=== PATIENT | female | born 1955 | race African-American/Black ===

== ENCOUNTER 2016-11-06 01:55 | Emergency (ER) | payer MEDICAID, OTHER ==
[~2016-11-06] VITALS: Ht 162.6 cm; Wt 54.0 kg
[~2016-11-06 01:55] MED LIST: CLON0.1T PO
[2016-11-06] MEDS ORDERED: MORPHINE SULFATE 4 MG/ML CPJ (NOT FOR IM USE) IV STA (02:52)
[2016-11-06] MEDS ORDERED: SODIUM CHLORIDE 0.9% 1,000 ML IV ONE (02:52)
[2016-11-06] MEDS ORDERED: ONDANSETRON HCL 4MG/2ML VIAL IV STA (02:52)
[2016-11-06 03:14] LABS: BASOPHILS % 0.4 % (0.0-2.0); EOSINOPHILS % 0.3 % (0.0-5.0); HEMOGLOBIN. 12.6 g/dL (12.0-16.0); LYMPHOCYTES % 21.1 % (20.0-50.0); MEAN CORPUSCULAR HEMOGLOBIN 28.4 pg (28.0-32.0); MEAN CORPUSCULAR VOLUME 83.5 fL (81.0-99.0); MEAN PLATELET VOLUME 7.9 fl (7.4-10.4); MONOCYTES % 11.7 % (2.0-8.0); NEUTROPHILS % 66.5 % (40.0-76.0); PLATELET 196 x1000/uL (130-400); RED BLOOD CELL COUNT 4.43 mill/uL (4.2-5.4); RED CELL DISTRIBUTION WIDTH 16.1 % (11.6-14.6)
[2016-11-06 03:26] LABS: CARBON DIOXIDE 26 mEq/L (21-32); CHLORIDE 102 mEq/L (98-107); TROPONIN I < 0.02 ng/mL (0.00-0.04)
[2016-11-06] MEDS ORDERED: POTASSIUM CHLORIDE 20MEQ TABLET SR PO ONE (03:45)
[2016-11-06] MEDS ORDERED: KETOROLAC 30MG/ML VIAL IV ONE (05:30)
[2016-11-06 08:15] VITALS: BP 145/65
== END 2016-11-06 08:26 | disposition home or self-care (01) ==
LOC: ER 01:56
DX: R10.12 Left upper quadrant pain (principal); I10 Essential (primary) hypertension; I25.2 Old myocardial infarction; Z88.0 Allergy status to penicillin; Z91.041 Radiographic dye allergy status
CPT/HCPCS: 36415; 71010; 74176; 78580; 80053; 83690; 84484; 85025; 85379; 93005; 96361; 96374; 96375; 99285; A9540; J1885; J2270; J2405; J7030; Z7610

== ENCOUNTER 2017-10-11 11:57 | Emergency (ER) | payer OTHER ==
[~2017-10-11] VITALS: Ht 162.6 cm; Wt 65.0 kg
[2017-10-11 12:08] VITALS: BP 110/70
== END 2017-10-11 15:02 | disposition left against medical advice (07) ==
LOC: ER 11:57
DX: R07.81 Pleurodynia (principal); M79.602 Pain in left arm; R00.0 Tachycardia, unspecified; I51.7 Cardiomegaly
CPT/HCPCS: 93005; 99283

== ENCOUNTER 2018-04-21 05:05 | Emergency (ER) | payer OTHER ==
[~2018-04-21] VITALS: Ht 162.6 cm; Wt 57.0 kg
[~2018-04-21 05:05] MED LIST changes: +AMLO10TA80 MT; +ASPI-1159 MT; -CLON0.1T PO; +DOCU-100 MT; +HYDR-4001 MT; +LEVE500T19 MT; +OMEP20TA2 MT; +XAR15 MT
[2018-04-21] MEDS ORDERED: LORAZEPAM 2MG/ML CPJ ONE (05:37)
[2018-04-21] MEDS ORDERED: LORAZEPAM 2MG/ML CPJ IV ONE (06:00)
[2018-04-21] MEDS ORDERED: LEVETIRACETAM 1000MG/100ML 100 ML IV ONE (06:30)
[2018-04-21 06:55] LABS: CHLORIDE 103 mEq/L (98-107)
[2018-04-21 07:04] LABS: ETHANOL BLOOD < 10 mg/dL; HEMATOCRIT. 37.3 % (36.0-48.0); HEMOGLOBIN. 11.6 g/dL (12.0-16.0); MEAN CORPUSCULAR HEMOGLOBIN 25.1 pg (28.0-32.0); MEAN CORPUSCULAR VOLUME 80.9 fL (81.0-99.0); RED BLOOD CELL COUNT 4.62 mill/uL (4.2-5.4); RED CELL DISTRIBUTION WIDTH 17.8 % (11.6-14.6)
[2018-04-21 07:46] LABS: PLATELET ESTIMATE NORMAL
[2018-04-21 07:48] LABS: PLATELET 237 x1000/uL (130-400)
[2018-04-21 08:46] VITALS: BP 150/105
== END 2018-04-21 10:51 | disposition home or self-care (01) ==
LOC: ER 05:05
DX: G40.909 Epilepsy, unspecified, not intractable, without status epilepticus (principal); E87.6 Hypokalemia; D64.9 Anemia, unspecified; R07.81 Pleurodynia; K44.9 Diaphragmatic hernia without obstruction or gangrene; I10 Essential (primary) hypertension
CPT/HCPCS: 36415; 71045; 80053; 85025; 96365; 96375; 99285; G0482; J2060

== ENCOUNTER 2018-11-04 01:26 | Inpatient (IN) | payer OTHER ==
[~2018-11-04] VITALS: Ht 165.1 cm; Wt 73.5 kg
[~2018-11-04 01:26] MED LIST changes: -AMLO10TA80 MT; +AMLO10TA80 PO; -ASPI-1159 MT; +ASPI-1393 PO; -DOCU-100 MT; +DOCU-100 PO; +FERR325T6 MT; +FOLI-43 PO; +LASIX; -LEVE500T19 MT; +LEVE500T19 PO; -OMEP20TA2 MT; +OMEP20TA2 PO; +THIA100T72 PO; -XAR15 MT; +XAR15 PO
[2018-11-04] MEDS ORDERED: SODIUM CHLORIDE 0.9% 1,000 ML IV ONE ×2 (02:40→05:09)
[2018-11-04] MEDS ORDERED: METOCLOPRAMIDE HCL 10MG/2ML VIAL IV STA (02:40)
[2018-11-04] MEDS ORDERED: MORPHINE SULFATE 4 MG/ML CPJ (NOT FOR IM USE) IV STA (02:40)
[2018-11-04 03:05] LABS: BASOPHILS % 0.8 % (0.0-2.0); HEMATOCRIT. 36.6 % (36.0-48.0); LYMPHOCYTES % 12.1 % (20.0-50.0); MEAN CORPUSCULAR HEMOGLOBIN 25.8 pg (28.0-32.0); MEAN CORPUSCULAR VOLUME 78.6 fL (81.0-99.0); MEAN PLATELET VOLUME 8.3 fl (7.4-10.4); MONOCYTES % 7.1 % (2.0-8.0); PLATELET 185 x1000/uL (130-400); RED BLOOD CELL COUNT 4.66 mill/uL (4.2-5.4); RED CELL DISTRIBUTION WIDTH 19.3 % (11.6-14.6)
[2018-11-04 03:09] LABS: CHLORIDE 101 mEq/L (98-107)
[2018-11-04] MEDS ORDERED: LORAZEPAM 2MG/ML CPJ IV ONE (04:00)
[2018-11-04] MEDS ORDERED: LEVETIRACETAM 500MG PREMIX 100 ML IV ONE (04:00)
[2018-11-04 04:26] LABS: CLARITY URINE CLOUDY (CLEAR); COLOR URINE YELLOW (YELLOW); KETONES URINE NEGATIVE (NEGATIVE); LEUKOCYTE ESTERASE URINE 1+ (NEGATIVE); NITRITE URINE NEGATIVE (NEGATIVE); OCCULT BLOOD URINE 2+ (NEGATIVE); PROTEIN URINE 2+ (NEGATIVE); SPECIFIC GRAVITY URINE 1.023 (1.005-1.030)
[2018-11-04] MEDS ORDERED: DIATR MEGLU/DIATRIZOATE SOLN 30ML ONE (04:36)
[2018-11-04] MEDS ORDERED: CEFTRIAXONE 1 G PREMIX 50 ML IV ONE (05:15)
[2018-11-04] MEDS ORDERED: ONDANSETRON HCL 4MG/2ML INJ IV ONE (06:30)
[2018-11-04] MEDS ORDERED: MORPHINE SULFATE 4 MG/ML CPJ (NOT FOR IM USE) IV ONE (06:45)
[2018-11-04] MEDS ORDERED: MORPHINE SULFATE 2 MG/ML CPJ (NOT FOR IM USE) IV PRN (09:15)
[2018-11-04] MEDS ORDERED: DOCUSATE SODIUM 250MG CAPSULE PO PRN (09:15)
[2018-11-04 10:00] VITALS: BP 188/134
[2018-11-04] MEDS: OMEPRAZOLE 20MG CAPSULE EXTENDED RELEASE PO SCH (10:29)
[2018-11-04] MEDS: SODIUM CHLORIDE 0.9% 1,000 ML IV SCH (10:29)
[2018-11-04] MEDS: AMLODIPINE 5MG TABLET PO SCH ×2 (10:29→21:32)
[2018-11-04] MEDS: CLONIDINE 0.1MG TABLET PO PRN (10:30)
[2018-11-04] MEDS: ONDANSETRON HCL 4MG/2ML INJ IV PRN (10:33)
[2018-11-04] MEDS ORDERED: LOSARTAN POTASSIUM 50 MG TABLET PO SCH (11:00)
[2018-11-04] MEDS: LEVOFLOXACIN 500MG PREMIX 100 ML IV SCH (11:46)
[2018-11-04] MEDS ORDERED: HYDRALAZINE 20MG/ML VIAL IV PRN (14:30)
[2018-11-04] MEDS ORDERED: HYDRALAZINE 20MG/ML VIAL IV NR (14:30)
[2018-11-04] MEDS: FOLIC ACID 1MG TABLET PO SCH (15:36)
[2018-11-04] MEDS: THIAMINE HCL 100MG TABLET PO SCH (15:36)
[2018-11-04] MEDS: MULTIVITAMINS,THER W-MINERALS TABLET PO SCH (15:36)
[2018-11-04] MEDS: MORPHINE SULFATE 4 MG/ML CPJ (NOT FOR IM USE) IV PRN ×2 (15:44→21:33)
[2018-11-04] MEDS: ACETAMINOPHEN 325MG TABLET PO PRN (15:53)
[2018-11-04 16:00] VITALS: BP 138/94
[2018-11-04] MEDS: RIVAROXABAN 20 MG TABLET PO SCH (17:26)
[2018-11-04 20:00] VITALS: BP 97/62
[2018-11-04] MEDS ORDERED: LEVETIRACETAM 500MG TABLET PO SCH (21:00)
[2018-11-04] MEDS ORDERED: AMLODIPINE 5MG TABLET PO SCH (21:00)
[2018-11-04 21:30] VITALS: BP 120/68
[2018-11-04] MEDS: LOSARTAN POTASSIUM 50 MG TABLET PO SCH (21:32)
[2018-11-04] MEDS: LEVETIRACETAM 500MG TABLET PO SCH (21:32)
[2018-11-05] VITALS (8 sets, daily range): BP systolic 77–108; BP diastolic 46–62
[2018-11-05] MEDS: SODIUM CHLORIDE 0.9% 1,000 ML IV SCH ×3 (03:34→22:38)
[2018-11-05] MEDS: MORPHINE SULFATE 4 MG/ML CPJ (NOT FOR IM USE) IV PRN ×3 (03:34→22:16)
[2018-11-05] MEDS: OMEPRAZOLE 20MG CAPSULE EXTENDED RELEASE PO SCH (06:59)
[2018-11-05] MEDS: AMLODIPINE 5MG TABLET PO SCH ×2 (08:39→21:00)
[2018-11-05] MEDS: LOSARTAN POTASSIUM 50 MG TABLET PO SCH (08:39)
[2018-11-05] MEDS: FOLIC ACID 1MG TABLET PO SCH (08:51)
[2018-11-05] MEDS: THIAMINE HCL 100MG TABLET PO SCH (08:51)
[2018-11-05] MEDS: LEVETIRACETAM 500MG TABLET PO SCH ×2 (08:51→21:18)
[2018-11-05] MEDS: MULTIVITAMINS,THER W-MINERALS TABLET PO SCH (08:51)
[2018-11-05 09:38] LABS: BASOPHILS % 1.1 % (0.0-2.0); EOSINOPHILS % 2.4 % (0.0-5.0); HEMATOCRIT. 33.3 % (36.0-48.0); HEMOGLOBIN. 10.6 g/dL (12.0-16.0); LYMPHOCYTES % 31.9 % (20.0-50.0); MEAN CORPUSCULAR HEMOGLOBIN 25.7 pg (28.0-32.0); MEAN CORPUSCULAR VOLUME 81.2 fL (81.0-99.0); MEAN PLATELET VOLUME 8.5 fl (7.4-10.4); NEUTROPHILS % 50.6 % (40.0-76.0); PLATELET 152 x1000/uL (130-400); RED BLOOD CELL COUNT 4.11 mill/uL (4.2-5.4); RED CELL DISTRIBUTION WIDTH 19.1 % (11.6-14.6)
[2018-11-05] MEDS: LEVOFLOXACIN 500MG PREMIX 100 ML IV SCH (09:44)
[2018-11-05] MEDS ORDERED: BISACODYL 10MG SUPP PR PRN (11:00)
[2018-11-05] MEDS: MIDODRINE HCL 5MG TABLET PO SCH ×3 (11:05→18:06)
[2018-11-05 11:52] LABS: CHLORIDE 106 mEq/L (98-107)
[2018-11-05] MEDS ORDERED: SODIUM CHLORIDE 0.9% 1000ML BAG (SEPSIS BOLUS) IV ONE (15:00)
[2018-11-05] MEDS ORDERED: MIDODRINE HCL 5MG TABLET PO NR (15:00)
[2018-11-05] MEDS ORDERED: SODIUM CHLORIDE 0.9% 1,000 ML IV SCH (15:15)
[2018-11-05] MEDS: DOCUSATE SODIUM 100MG CAPSULE PO SCH (18:06)
[2018-11-05] MEDS: RIVAROXABAN 20 MG TABLET PO SCH (18:06)
[2018-11-06] VITALS: BP 101/63
[2018-11-06] MEDS: ACETAMINOPHEN 325MG TABLET PO PRN (02:07)
[2018-11-06] MEDS: MORPHINE SULFATE 4 MG/ML CPJ (NOT FOR IM USE) IV PRN ×5 (03:02→23:49)
[2018-11-06 04:00] VITALS: BP 97/59
[2018-11-06] MEDS: OMEPRAZOLE 20MG CAPSULE EXTENDED RELEASE PO SCH (06:57)
[2018-11-06 08:00] VITALS: BP 97/67
[2018-11-06] MEDS: DOCUSATE SODIUM 100MG CAPSULE PO SCH ×2 (09:10→16:29)
[2018-11-06] MEDS: FOLIC ACID 1MG TABLET PO SCH (09:10)
[2018-11-06] MEDS: MULTIVITAMINS,THER W-MINERALS TABLET PO SCH (09:10)
[2018-11-06] MEDS: THIAMINE HCL 100MG TABLET PO SCH (09:10)
[2018-11-06] MEDS: AMLODIPINE 5MG TABLET PO SCH (09:10)
[2018-11-06] MEDS: LEVETIRACETAM 500MG TABLET PO SCH ×2 (09:10→23:22)
[2018-11-06] MEDS: MIDODRINE HCL 5MG TABLET PO SCH ×3 (09:11→16:30)
[2018-11-06] MEDS: LEVOFLOXACIN 500MG PREMIX 100 ML IV SCH (10:46)
[2018-11-06 12:00] VITALS: BP 104/67
[2018-11-06] MEDS: SODIUM CHLORIDE 0.9% 1,000 ML IV SCH (14:09)
[2018-11-06 16:00] VITALS: BP 112/64
[2018-11-06] MEDS: RIVAROXABAN 20 MG TABLET PO SCH (16:29)
[2018-11-06 16:44] LABS: CHLORIDE 109 mEq/L (98-107)
[2018-11-06 16:58] LABS: BASOPHILS % 0.5 % (0.0-2.0); EOSINOPHILS % 3.6 % (0.0-5.0); HEMATOCRIT. 31.4 % (36.0-48.0); HEMOGLOBIN. 10.2 g/dL (12.0-16.0); MEAN CORPUSCULAR HEMOGLOBIN 25.9 pg (28.0-32.0); MEAN CORPUSCULAR VOLUME 79.9 fL (81.0-99.0); MEAN PLATELET VOLUME 8.8 fl (7.4-10.4); NEUTROPHILS % 55.9 % (40.0-76.0); PLATELET 171 x1000/uL (130-400); RED BLOOD CELL COUNT 3.93 mill/uL (4.2-5.4); RED CELL DISTRIBUTION WIDTH 18.8 % (11.6-14.6)
[2018-11-06 20:00] VITALS: BP 115/77
[2018-11-07] VITALS: BP 155/93
[2018-11-07] MEDS: MORPHINE SULFATE 4 MG/ML CPJ (NOT FOR IM USE) IV PRN ×5 (03:47→22:51)
[2018-11-07 04:00] VITALS: BP 123/83
[2018-11-07 07:31] LABS: CHLORIDE 110 mEq/L (98-107)
[2018-11-07 08:00] VITALS: BP 110/53
[2018-11-07 08:45] LABS: BASOPHILS % 0.9 % (0.0-2.0); HEMOGLOBIN. 11.2 g/dL (12.0-16.0); LYMPHOCYTES % 34.4 % (20.0-50.0); MEAN CORPUSCULAR VOLUME 81.5 fL (81.0-99.0); MONOCYTES % 9.5 % (2.0-8.0); NEUTROPHILS % 52.2 % (40.0-76.0); RED CELL DISTRIBUTION WIDTH 19.2 % (11.6-14.6)
[2018-11-07] MEDS: FOLIC ACID 1MG TABLET PO SCH (08:50)
[2018-11-07] MEDS: MIDODRINE HCL 5MG TABLET PO SCH (08:51)
[2018-11-07] MEDS: DOCUSATE SODIUM 100MG CAPSULE PO SCH ×2 (08:51→17:15)
[2018-11-07] MEDS: MULTIVITAMINS,THER W-MINERALS TABLET PO SCH (08:51)
[2018-11-07] MEDS: FAMOTIDINE 20MG TABLET PO SCH ×2 (08:51→20:57)
[2018-11-07] MEDS: THIAMINE HCL 100MG TABLET PO SCH (08:52)
[2018-11-07] MEDS: LEVETIRACETAM 500MG TABLET PO SCH ×2 (08:52→20:57)
[2018-11-07 10:15] LABS: *BARBITURATES SCREEN URINE NEGATIVE (NEGATIVE); *BENZODIAZEPINES SCREEN URINE NEGATIVE (NEGATIVE); *COCAINE SCREEN URINE NEGATIVE (NEGATIVE); METHADONE URINE SCREEN NEGATIVE (NEGATIVE); OPIATES URINE SCREEN PRESUMTIVE POSITIVE (NEGATIVE)
[2018-11-07 10:16] LABS: *AMPHETAMINES SCREEN URINE NEGATIVE (NEGATIVE); CANNABINOID URINE SCREEN NEGATIVE (NEGATIVE); PHENCYCLIDINE URINE SCREEN NEGATIVE (NEGATIVE)
[2018-11-07] MEDS: LEVOFLOXACIN 500MG TABLET PO SCH (10:35)
[2018-11-07] MEDS: SODIUM CHLORIDE 0.9% 1,000 ML IV SCH (10:35)
[2018-11-07 11:54] LABS: PLATELET 72 x1000/uL (130-400)
[2018-11-07 12:00] VITALS: BP 126/81
[2018-11-07 16:00] VITALS: BP 155/99
[2018-11-07] MEDS: RIVAROXABAN 20 MG TABLET PO SCH (17:15)
[2018-11-07] MEDS: ONDANSETRON HCL 4MG/2ML INJ IV PRN ×2 (17:15→23:16)
[2018-11-07] MEDS ORDERED: LORAZEPAM 2MG/ML CPJ IV PRN (18:00)
[2018-11-07] MEDS ORDERED: ATOR40TA70 MT (18:25)
[2018-11-07] MEDS ORDERED: GABA-531 MT (18:25)
[2018-11-07] MEDS ORDERED: METO25TA6 MT (18:25)
[2018-11-07] MEDS ORDERED: TRAM50TA3 MT (18:25)
[2018-11-07] MEDS ORDERED: ISOS30TA6 MT (18:25)
[2018-11-07] MEDS ORDERED: DICL100G31 TP (18:25)
[2018-11-07 20:00] VITALS: BP 174/122
[2018-11-08] VITALS (8 sets, daily range): BP systolic 122–170; BP diastolic 75–110
[2018-11-08] MEDS: MORPHINE SULFATE 4 MG/ML CPJ (NOT FOR IM USE) IV PRN (03:34)
[2018-11-08] MEDS: SODIUM CHLORIDE 0.9% 1,000 ML IV SCH (03:34)
[2018-11-08] MEDS ORDERED: ONDANSETRON HCL 4MG TABLET PO PRN (08:30)
[2018-11-08] MEDS: FAMOTIDINE 20MG TABLET PO SCH ×2 (08:55→20:47)
[2018-11-08] MEDS: LEVETIRACETAM 500MG TABLET PO SCH ×2 (08:55→20:47)
[2018-11-08] MEDS: MULTIVITAMINS,THER W-MINERALS TABLET PO SCH (08:55)
[2018-11-08] MEDS: THIAMINE HCL 100MG TABLET PO SCH (08:55)
[2018-11-08] MEDS: DOCUSATE SODIUM 100MG CAPSULE PO SCH ×2 (08:55→17:12)
[2018-11-08] MEDS: FOLIC ACID 1MG TABLET PO SCH (08:55)
[2018-11-08] MEDS: HYDROMORPHONE HCL/PF 2MG/ML CPJ IM PRN ×2 (08:56→13:04)
[2018-11-08] MEDS ORDERED: LIDOCAINE HCL 1% 20ML VIAL (Pyxis) INJ ONE (10:04)
[2018-11-08] MEDS ORDERED: SODIUM BICARBONATE 4% (2.4MEQ) 5ML VIAL IV ONE (10:04)
[2018-11-08] MEDS: LEVOFLOXACIN 500MG TABLET PO SCH (11:12)
[2018-11-08] MEDS: CLONIDINE 0.1MG TABLET PO PRN (13:04)
[2018-11-08] MEDS ORDERED: BISACODYL 10MG SUPP PR NR (16:00)
[2018-11-08] MEDS ORDERED: BISACODYL 10MG SUPP PR PRN (16:00)
[2018-11-08] MEDS: RIVAROXABAN 20 MG TABLET PO SCH (17:12)
[2018-11-08] MEDS: HYDROMORPHONE HCL/PF 2MG/ML CPJ IV PRN ×2 (17:22→22:29)
[2018-11-09] VITALS: BP_SYST 115; BP_SYST 126; BP_DIAS 65; BP_DIAS 92
[2018-11-09] MEDS: HYDROMORPHONE HCL/PF 2MG/ML CPJ IV PRN ×4 (04:00→18:44)
[2018-11-09] MEDS: SODIUM CHLORIDE 0.9% 1,000 ML IV SCH ×3 (05:15→23:35)
[2018-11-09 08:00] VITALS: BP 122/70
[2018-11-09] MEDS: LEVETIRACETAM 500MG TABLET PO SCH ×2 (08:55→21:57)
[2018-11-09] MEDS: FAMOTIDINE 20MG TABLET PO SCH (08:56)
[2018-11-09] MEDS: FOLIC ACID 1MG TABLET PO SCH (08:56)
[2018-11-09] MEDS: THIAMINE HCL 100MG TABLET PO SCH (08:56)
[2018-11-09] MEDS: MULTIVITAMINS,THER W-MINERALS TABLET PO SCH (08:56)
[2018-11-09] MEDS: DOCUSATE SODIUM 100MG CAPSULE PO SCH (08:56)
[2018-11-09] MEDS: LEVOFLOXACIN 500MG TABLET PO SCH (11:22)
[2018-11-09] MEDS: LACTULOSE 20G/30ML UDC PO NR ×2 (11:22→11:24)
[2018-11-09 12:00] VITALS: BP 112/76
[2018-11-09] MEDS: OMEPRAZOLE 20MG CAPSULE EXTENDED RELEASE PO SCH ×2 (13:04→21:57)
[2018-11-09 16:00] VITALS: BP 120/81
[2018-11-09] MEDS: DOCUSATE SODIUM 250MG CAPSULE PO SCH (17:00)
[2018-11-09 20:00] VITALS: BP 123/81
[2018-11-10] VITALS: BP 104/70
[2018-11-10 00:16] LABS: BASOPHILS % 0.3 % (0.0-2.0); EOSINOPHILS % 3.7 % (0.0-5.0); HEMATOCRIT. 28.9 % (36.0-48.0); HEMOGLOBIN. 9.5 g/dL (12.0-16.0); MEAN CORPUSCULAR VOLUME 79.4 fL (81.0-99.0); MEAN PLATELET VOLUME 8.7 fl (7.4-10.4); MONOCYTES % 13.5 % (2.0-8.0); NEUTROPHILS % 60.5 % (40.0-76.0); PLATELET 146 x1000/uL (130-400); RED BLOOD CELL COUNT 3.64 mill/uL (4.2-5.4); RED CELL DISTRIBUTION WIDTH 19.1 % (11.6-14.6)
[2018-11-10] MEDS: HYDROMORPHONE HCL/PF 2MG/ML CPJ IV PRN ×4 (00:22→13:46)
[2018-11-10] MEDS: RIVAROXABAN 20 MG TABLET PO SCH (00:33)
[2018-11-10 04:00] VITALS: BP 110/66
[2018-11-10] MEDS: OMEPRAZOLE 20MG CAPSULE EXTENDED RELEASE PO SCH (06:24)
[2018-11-10 08:00] VITALS: BP 136/83
[2018-11-10] MEDS: FOLIC ACID 1MG TABLET PO SCH (09:17)
[2018-11-10] MEDS: MULTIVITAMINS,THER W-MINERALS TABLET PO SCH (09:17)
[2018-11-10] MEDS: SODIUM CHLORIDE 0.9% 1,000 ML IV SCH (09:17)
[2018-11-10] MEDS: DOCUSATE SODIUM 250MG CAPSULE PO SCH (09:17)
[2018-11-10] MEDS: LEVETIRACETAM 500MG TABLET PO SCH (09:17)
[2018-11-10] MEDS: THIAMINE HCL 100MG TABLET PO SCH (09:17)
[2018-11-10] MEDS ORDERED: BISACODYL 10MG SUPP PR SCH (10:00)
[2018-11-10] MEDS: LEVOFLOXACIN 500MG TABLET PO SCH (10:34)
[2018-11-10 12:00] VITALS: BP 112/64
[2018-11-10 15:26] VITALS: BP 123/81
[2018-11-10 15:30] VITALS: BP 123/81
[2018-11-10] MEDS ORDERED: NA PHOS,M-B/NA PHOS,DI-BA ENEMA 118ML PR SCH (20:00)
== END 2018-11-10 17:10 | disposition home or self-care (01) | DRG 282 ==
LOC: ER 01:26 → 5WST 05:58 → EDBEDREQ 05:59 → EDBEDREQTM 05:59 → ENRESERV 07:05 → CANRESERV 07:05 → ENRESERV 07:20
PROVIDERS: ADMIT Internal Medicine; ATTEND Internal Medicine
PROC: 02HV33Z Insertion of Infusion Device into Superior Vena Cava, Percutaneous Approach (ICD-10-PCS; principal; 2018-11-08)
PROC: B548ZZA Ultrasonography of Superior Vena Cava, Guidance (ICD-10-PCS; 2018-11-08)
PROC: B5181ZA Fluoroscopy of Superior Vena Cava using Low Osmolar Contrast, Guidance (ICD-10-PCS; 2018-11-08)
DX: K85.90 Acute pancreatitis without necrosis or infection, unspecified (principal); G20 Parkinson's disease; E87.2 Acidosis; D69.6 Thrombocytopenia, unspecified; I48.91 Unspecified atrial fibrillation; R65.10 Systemic inflammatory response syndrome (SIRS) of non-infectious origin without acute organ dysfunction; G40.909 Epilepsy, unspecified, not intractable, without status epilepticus; E78.5 Hyperlipidemia, unspecified; N39.0 Urinary tract infection, site not specified; E87.6 Hypokalemia; I45.6 Pre-excitation syndrome; K44.9 Diaphragmatic hernia without obstruction or gangrene; K59.00 Constipation, unspecified; K21.9 Gastro-esophageal reflux disease without esophagitis; I10 Essential (primary) hypertension; Z86.73 Personal history of transient ischemic attack (TIA), and cerebral infarction without residual deficits; I25.10 Atherosclerotic heart disease of native coronary artery without angina pectoris; Z95.810 Presence of automatic (implantable) cardiac defibrillator; I25.2 Old myocardial infarction; Z79.01 Long term (current) use of anticoagulants; Z86.711 Personal history of pulmonary embolism; Z90.49 Acquired absence of other specified parts of digestive tract; Z88.0 Allergy status to penicillin; Z88.9 Allergy status to unspecified drugs, medicaments and biological substances
CPT/HCPCS: 36415; 36569; 36573; 71045; 74018; 74176; 80048; 80305; 82962; 83036; 83605; 84484; 93970; 97116; 97162; 97530; 99285; C1725; C1893; J0360; J0696; J1170; J1953; J1956; J2060; J2270; J2405; J2765; J3490; J7030; J7050; Q9963

== ENCOUNTER 2018-11-30 07:35 | Emergency (ER) | payer OTHER ==
[~2018-11-30] VITALS: Ht 167.6 cm; Wt 65.0 kg
[~2018-11-30 07:35] MED LIST changes: +ATOR40TA70 MT; +DICL100G31 TP; +GABA-531 MT; +ISOS30TA6 MT; -LASIX; +METO25TA6 MT; +TRAM50TA3 MT
[2018-11-30] MEDS ORDERED: SODIUM CHLORIDE 0.9% 1,000 ML IV ONE (08:52)
[2018-11-30] MEDS ORDERED: LORAZEPAM 2MG/ML CPJ IV ONE (09:00)
[2018-11-30 09:14] LABS: CLARITY URINE CLEAR (CLEAR); COLOR URINE YELLOW (YELLOW); KETONES URINE 1+ (NEGATIVE); LEUKOCYTE ESTERASE URINE NEGATIVE (NEGATIVE); NITRITE URINE NEGATIVE (NEGATIVE); OCCULT BLOOD URINE 2+ (NEGATIVE); PROTEIN URINE 1+ (NEGATIVE); SPECIFIC GRAVITY URINE 1.016 (1.005-1.030); UROBILINOGEN URINE 0.2 E.U./dL (0.2-1.0)
[2018-11-30 09:16] LABS: BASOPHILS % 0.4 % (0.0-2.0); EOSINOPHILS % 0.2 % (0.0-5.0); HEMATOCRIT. 39.1 % (36.0-48.0); HEMOGLOBIN. 12.7 g/dL (12.0-16.0); MEAN CORPUSCULAR HEMOGLOBIN 25.9 pg (28.0-32.0); MEAN CORPUSCULAR VOLUME 79.8 fL (81.0-99.0); MEAN PLATELET VOLUME 8.5 fl (7.4-10.4); MONOCYTES % 9.5 % (2.0-8.0); NEUTROPHILS % 73.9 % (40.0-76.0); PLATELET 184 x1000/uL (130-400); RED CELL DISTRIBUTION WIDTH 18.2 % (11.6-14.6)
[2018-11-30 09:22] LABS: CHLORIDE 107 mEq/L (98-107)
[2018-11-30 09:24] LABS: INR 1.1; PROTHROMBIN TIME 11.7 sec (9.6-11.0)
[2018-11-30 09:26] LABS: ETHANOL BLOOD < 10 mg/dL
[2018-11-30 09:45] LABS: *COCAINE SCREEN URINE NEGATIVE (NEGATIVE)
[2018-11-30 09:46] LABS: *AMPHETAMINES SCREEN URINE NEGATIVE (NEGATIVE); CANNABINOID URINE SCREEN NEGATIVE (NEGATIVE); METHADONE URINE SCREEN NEGATIVE (NEGATIVE); OPIATES URINE SCREEN NEGATIVE (NEGATIVE); PHENCYCLIDINE URINE SCREEN NEGATIVE (NEGATIVE)
[2018-11-30 09:47] LABS: *BARBITURATES SCREEN URINE NEGATIVE (NEGATIVE); *BENZODIAZEPINES SCREEN URINE NEGATIVE (NEGATIVE)
[2018-11-30] MEDS ORDERED: MORPHINE SULFATE 4 MG/ML CPJ (NOT FOR IM USE) IV ONE ×2 (10:15→12:30)
[2018-11-30] MEDS ORDERED: ONDANSETRON HCL 4MG/2ML INJ IV ONE ×2 (10:15→12:30)
[2018-11-30 15:49] VITALS: BP 176/117
== END 2018-11-30 16:04 | disposition short-term general hospital (02) ==
LOC: ER 07:35
DX: R10.13 Epigastric pain (principal); Z88.0 Allergy status to penicillin; Z90.49 Acquired absence of other specified parts of digestive tract; Z95.0 Presence of cardiac pacemaker; Z90.89 Acquired absence of other organs; Z79.899 Other long term (current) drug therapy
CPT/HCPCS: 36415; 74176; 80053; 80305; 80320; 81003; 83690; 84484; 85025; 85610; 96374; 96375; 96376; 99285; J2060; J2270; J2405; J7030; Z7610; G0480

== ENCOUNTER 2019-01-20 19:03 | Emergency (ER) | payer OTHER ==
[~2019-01-20] VITALS: Ht 167.6 cm; Wt 65.0 kg
[2019-01-20] MEDS ORDERED: ONDANSETRON HCL 4MG/2ML INJ IV STA (19:50)
[2019-01-20] MEDS ORDERED: MORPHINE SULFATE 4 MG/ML CPJ (NOT FOR IM USE) IV STA (19:50)
[2019-01-20] MEDS ORDERED: KETOROLAC 30MG/ML VIAL IV STA (19:50)
[2019-01-20 20:13] LABS: BASOPHILS % 0.5 % (0.0-2.0); HEMATOCRIT. 40.5 % (36.0-48.0); HEMOGLOBIN. 13.2 g/dL (12.0-16.0); LYMPHOCYTES % 14.2 % (20.0-50.0); MEAN CORPUSCULAR HEMOGLOBIN 25.9 pg (28.0-32.0); MEAN CORPUSCULAR VOLUME 79.6 fL (81.0-99.0); MEAN PLATELET VOLUME 8.2 fl (7.4-10.4); MONOCYTES % 11.3 % (2.0-8.0); PLATELET 231 x1000/uL (130-400); RED BLOOD CELL COUNT 5.08 mill/uL (4.2-5.4); RED CELL DISTRIBUTION WIDTH 16.8 % (11.6-14.6)
[2019-01-20 20:18] LABS: CHLORIDE 98 mEq/L (98-107)
[2019-01-20 20:20] LABS: INR 1.1; PARTIAL THROMBOPLASTIN TIME 23.3 sec (23.4-31.0); PROTHROMBIN TIME 11.2 sec (9.6-11.0)
[2019-01-20 20:22] LABS: ETHANOL BLOOD < 10 mg/dL
[2019-01-20] MEDS ORDERED: MORPHINE SULFATE 10 MG/ML CPJ IM ONE (21:15)
[2019-01-20] MEDS ORDERED: KETOROLAC 30MG/ML VIAL IM ONE (21:15)
[2019-01-20] MEDS ORDERED: CLONIDINE 0.2MG TABLET PO ONE (22:15)
[2019-01-20] MEDS ORDERED: ASPIRIN 81MG TABLET PO ONE (22:15)
[2019-01-21 00:50] VITALS: BP 100/73
== END 2019-01-21 01:10 | disposition short-term general hospital (02) ==
LOC: ER 19:03 → EDBEDREQ 22:21 → ER 01-21 01:10 → CANBEDREQ 01-21 02:39
DX: R07.89 Other chest pain (principal); I10 Essential (primary) hypertension; W18.39XA Other fall on same level, initial encounter; Y93.89 Activity, other specified; Y92.89 Other specified places as the place of occurrence of the external cause; Y99.8 Other external cause status; Z90.49 Acquired absence of other specified parts of digestive tract; Z95.0 Presence of cardiac pacemaker; Z98.890 Other specified postprocedural states; Z79.82 Long term (current) use of aspirin; Z79.899 Other long term (current) drug therapy; Z88.0 Allergy status to penicillin; Z91.041 Radiographic dye allergy status
CPT/HCPCS: 36415; 71045; 71250; 74176; 80053; 80320; 83690; 83880; 84484; 85025; 85610; 85730; 93005; 96372; 99285; J1885; J2270; Z7610; J2405; G0480

== ENCOUNTER 2019-04-30 10:27 | Inpatient (IN) | payer MEDICAID, OTHER ==
[~2019-04-30] VITALS: Ht 165.1 cm; Wt 61.2 kg
[2019-04-30] MEDS ORDERED: LORAZEPAM 2MG/ML CPJ ONE (11:31)
[2019-04-30] MEDS ORDERED: ONDANSETRON HCL 4MG/2ML INJ IV ONE (11:45)
[2019-04-30] MEDS ORDERED: METOPROLOL TARTRATE 25MG TABLET PO ONE (11:45)
[2019-04-30] MEDS ORDERED: LEVETIRACETAM 500MG PREMIX 100 ML IV ONE (11:45)
[2019-04-30] MEDS ORDERED: FAMOTIDINE 20MG/2ML VIAL IV ONE (12:30)
[2019-04-30] MEDS ORDERED: MORPHINE SULFATE 2 MG/ML CPJ (NOT FOR IM USE) IV ONE (12:30)
[2019-04-30 14:55] LABS: BASOPHILS % 0.3 % (0.0-2.0); EOSINOPHILS % 0.3 % (0.0-5.0); HEMATOCRIT. 38.1 % (36.0-48.0); HEMOGLOBIN. 12.3 g/dL (12.0-16.0); LYMPHOCYTES % 17.1 % (20.0-50.0); MEAN CORPUSCULAR HEMOGLOBIN 25.6 pg (28.0-32.0); MEAN CORPUSCULAR VOLUME 79.6 fL (81.0-99.0); MEAN PLATELET VOLUME 8.2 fl (7.4-10.4); MONOCYTES % 7.6 % (2.0-8.0); NEUTROPHILS % 74.7 % (40.0-76.0); PLATELET 312 x1000/uL (130-400); RED BLOOD CELL COUNT 4.79 mill/uL (4.2-5.4); RED CELL DISTRIBUTION WIDTH 18.2 % (11.6-14.6)
[2019-04-30 15:03] LABS: CHLORIDE 107 mEq/L (98-107)
[2019-04-30 15:30] LABS: CLARITY URINE CLEAR (CLEAR); COLOR URINE YELLOW (YELLOW); KETONES URINE NEGATIVE (NEGATIVE); LEUKOCYTE ESTERASE URINE NEGATIVE (NEGATIVE); NITRITE URINE NEGATIVE (NEGATIVE); OCCULT BLOOD URINE TRACE (NEGATIVE); PH URINE 7.5 (4.5-8.0); PROTEIN URINE 1+ (NEGATIVE); SPECIFIC GRAVITY URINE 1.013 (1.005-1.030); UROBILINOGEN URINE 0.2 E.U./dL (0.2-1.0)
[2019-04-30] MEDS ORDERED: MORPHINE SULFATE 4 MG/ML CPJ (NOT FOR IM USE) IV ONE (16:00)
[2019-04-30] MEDS ORDERED: METOCLOPRAMIDE HCL 10MG/2ML VIAL IV ONE (16:15)
[2019-04-30] MEDS ORDERED: CLONIDINE 0.1MG TABLET PO PRN (19:15)
[2019-04-30] MEDS ORDERED: ONDANSETRON HCL 4MG/2ML INJ IV PRN (19:15)
[2019-04-30] MEDS ORDERED: ACETAMINOPHEN 325MG TABLET PO PRN (19:15)
[2019-04-30 20:45] VITALS: BP 138/82
[2019-04-30] MEDS: LEVETIRACETAM 500MG TABLET PO SCH (21:16)
[2019-05-01] VITALS: BP 114/73
[2019-05-01 04:00] VITALS: BP 112/86
[2019-05-01] MEDS: MORPHINE SULFATE 2 MG/ML CPJ (NOT FOR IM USE) IV PRN ×3 (04:24→19:22)
[2019-05-01 07:10] LABS: BASOPHILS % 0.6 % (0.0-2.0); EOSINOPHILS % 0.3 % (0.0-5.0); HEMATOCRIT. 37.5 % (36.0-48.0); HEMOGLOBIN. 12.1 g/dL (12.0-16.0); LYMPHOCYTES % 20.1 % (20.0-50.0); MEAN CORPUSCULAR HEMOGLOBIN 25.4 pg (28.0-32.0); MEAN CORPUSCULAR VOLUME 79.1 fL (81.0-99.0); MEAN PLATELET VOLUME 8.7 fl (7.4-10.4); MONOCYTES % 12.7 % (2.0-8.0); NEUTROPHILS % 66.3 % (40.0-76.0); PLATELET 276 x1000/uL (130-400); RED BLOOD CELL COUNT 4.74 mill/uL (4.2-5.4); RED CELL DISTRIBUTION WIDTH 18.5 % (11.6-14.6)
[2019-05-01 08:00] VITALS: BP 109/70
[2019-05-01] MEDS: LEVETIRACETAM 500MG TABLET PO SCH (08:11)
[2019-05-01] MEDS ORDERED: POTASSIUM CHLORIDE 20MEQ TABLET SR PO NR (10:00)
[2019-05-01 12:00] VITALS: BP 100/74
[2019-05-01 16:00] VITALS: BP 97/73
[2019-05-01] MEDS ORDERED: DOCUSATE SODIUM 100MG CAPSULE PO PRN (17:45)
[2019-05-01] MEDS ORDERED: HYDROCODONE/ACETAMINOPHEN 5/325MG TABLET PO PRN (17:45)
[2019-05-01] MEDS ORDERED: TRAMADOL 50MG TABLET PO PRN (18:15)
[2019-05-01 20:00] VITALS: BP 123/77
[2019-05-01] MEDS: ATORVASTATIN CALCIUM 40MG TABLET PO SCH (21:10)
[2019-05-01] MEDS: LEVETIRACETAM 250MG TABLET PO SCH (21:10)
[2019-05-01] MEDS: GABAPENTIN 300MG CAPSULE PO SCH (21:10)
[2019-05-02] VITALS: BP 109/66
[2019-05-02] MEDS: MORPHINE SULFATE 2 MG/ML CPJ (NOT FOR IM USE) IV PRN ×2 (01:04→08:31)
[2019-05-02 04:00] VITALS: BP 96/64
[2019-05-02] MEDS: GABAPENTIN 300MG CAPSULE PO SCH ×3 (06:22→21:57)
[2019-05-02 07:30] LABS: BASOPHILS % 0.6 % (0.0-2.0); EOSINOPHILS % 1.5 % (0.0-5.0); HEMATOCRIT. 36.6 % (36.0-48.0); HEMOGLOBIN. 11.5 g/dL (12.0-16.0); LYMPHOCYTES % 31.9 % (20.0-50.0); MEAN CORPUSCULAR HEMOGLOBIN 24.9 pg (28.0-32.0); MEAN CORPUSCULAR VOLUME 79.5 fL (81.0-99.0); MEAN PLATELET VOLUME 8.4 fl (7.4-10.4); MONOCYTES % 10.6 % (2.0-8.0); NEUTROPHILS % 55.4 % (40.0-76.0); PLATELET 289 x1000/uL (130-400); RED CELL DISTRIBUTION WIDTH 19.3 % (11.6-14.6)
[2019-05-02 08:00] VITALS: BP 118/78
[2019-05-02] MEDS: FOLIC ACID 1MG TABLET PO SCH (08:30)
[2019-05-02] MEDS: METOPROLOL TARTRATE 25MG TABLET PO SCH ×2 (08:30→20:46)
[2019-05-02] MEDS: ASPIRIN 81MG TABLET PO SCH (08:30)
[2019-05-02] MEDS: AMLODIPINE 10MG TABLET PO SCH (08:30)
[2019-05-02] MEDS: LEVETIRACETAM 250MG TABLET PO SCH ×2 (08:30→20:48)
[2019-05-02 08:31] LABS: CHLORIDE 105 mEq/L (98-107)
[2019-05-02] MEDS: ISOSORBIDE MONONITRATE 30MG TABLET SR 24HR PO SCH (08:47)
[2019-05-02] MEDS ORDERED: AMLODIPINE 10MG TABLET PO SCH (09:00)
[2019-05-02] MEDS ORDERED: OMEPRAZOLE 20MG CAPSULE EXTENDED RELEASE PO SCH (09:00)
[2019-05-02 12:00] VITALS: BP 84/52
[2019-05-02] MEDS ORDERED: SODIUM CHLORIDE 0.9% 250 ML IV ONE ×2 (13:15→14:15)
[2019-05-02 16:00] VITALS: BP 96/60
[2019-05-02] MEDS ORDERED: RIVAROXABAN 15 MG TABLET PO SCH (17:00)
[2019-05-02] MEDS: OMEPRAZOLE 20MG CAPSULE EXTENDED RELEASE PO SCH (17:20)
[2019-05-02] MEDS: SUCRALFATE 1 G/10 ML UDC PO SCH ×2 (17:20→20:46)
[2019-05-02 20:00] VITALS: BP 102/69
[2019-05-02] MEDS: ATORVASTATIN CALCIUM 40MG TABLET PO SCH (20:48)
[2019-05-03] VITALS: BP 107/74
[2019-05-03] MEDS: MORPHINE SULFATE 2 MG/ML CPJ (NOT FOR IM USE) IV PRN ×4 (00:22→15:33)
[2019-05-03 04:00] VITALS: BP 112/78
[2019-05-03] MEDS: GABAPENTIN 300MG CAPSULE PO SCH ×2 (06:31→15:32)
[2019-05-03] MEDS: OMEPRAZOLE 20MG CAPSULE EXTENDED RELEASE PO SCH (06:32)
[2019-05-03 06:55] LABS: CHLORIDE 107 mEq/L (98-107)
[2019-05-03 07:15] LABS: BASOPHILS % 0.8 % (0.0-2.0); HEMOGLOBIN. 10.6 g/dL (12.0-16.0); LYMPHOCYTES % 28.2 % (20.0-50.0); MEAN CORPUSCULAR HEMOGLOBIN 25.5 pg (28.0-32.0); MEAN CORPUSCULAR VOLUME 79.3 fL (81.0-99.0); MEAN PLATELET VOLUME 8.4 fl (7.4-10.4); MONOCYTES % 11.1 % (2.0-8.0); NEUTROPHILS % 57.9 % (40.0-76.0); PLATELET 253 x1000/uL (130-400); RED BLOOD CELL COUNT 4.16 mill/uL (4.2-5.4); RED CELL DISTRIBUTION WIDTH 18.6 % (11.6-14.6)
[2019-05-03] MEDS: SUCRALFATE 1 G/10 ML UDC PO SCH ×2 (07:54→12:34)
[2019-05-03] MEDS: ISOSORBIDE MONONITRATE 30MG TABLET SR 24HR PO SCH (08:43)
[2019-05-03] MEDS: METOPROLOL TARTRATE 25MG TABLET PO SCH (08:44)
[2019-05-03] MEDS: LEVETIRACETAM 250MG TABLET PO SCH (09:32)
[2019-05-03] MEDS: AMLODIPINE 10MG TABLET PO SCH (09:33)
[2019-05-03] MEDS: ASPIRIN 81MG TABLET PO SCH (09:33)
[2019-05-03] MEDS: FOLIC ACID 1MG TABLET PO SCH (09:33)
[2019-05-03 12:00] VITALS: BP 103/67
[2019-05-03] MEDS ORDERED: OMEP20TA2 PO (15:20)
[2019-05-03 16:00] VITALS: BP 105/65
[2019-05-03 17:43] VITALS: BP 105/65
[2019-05-09] MEDS ORDERED: FAMO20TA8 MT (15:00)
[2019-05-09] MEDS ORDERED: P20 MT (15:00)
[2019-05-09] MEDS ORDERED: DIPH25CA83 MT (15:00)
== END 2019-05-03 18:08 | disposition home or self-care (01) | DRG 241 ==
LOC: ER 10:34 → 6EST 18:18 → ENRESERV 19:17 → 6EST 05-01 10:40
PROVIDERS: ADMIT Internal Medicine; ATTEND Internal Medicine
DX: K29.70 Gastritis, unspecified, without bleeding (principal); I48.91 Unspecified atrial fibrillation; M32.9 Systemic lupus erythematosus, unspecified; E78.5 Hyperlipidemia, unspecified; G40.909 Epilepsy, unspecified, not intractable, without status epilepticus; I10 Essential (primary) hypertension; I25.10 Atherosclerotic heart disease of native coronary artery without angina pectoris; K27.9 Peptic ulcer, site unspecified, unspecified as acute or chronic, without hemorrhage or perforation; K21.9 Gastro-esophageal reflux disease without esophagitis; K44.9 Diaphragmatic hernia without obstruction or gangrene; Z90.49 Acquired absence of other specified parts of digestive tract; Z95.0 Presence of cardiac pacemaker; Z79.01 Long term (current) use of anticoagulants; Z88.0 Allergy status to penicillin; Z91.041 Radiographic dye allergy status; Z79.899 Other long term (current) drug therapy
CPT/HCPCS: 36415; 74176; 80048; 81003; 84484; C1893; J1953; J2060; J2270; J2405; J2765; J3490; A4315

== ENCOUNTER 2020-04-28 16:53 | Emergency (ER) | payer MEDICAID ==
[~2020-04-28] VITALS: Ht 162.6 cm; Wt 63.0 kg
[~2020-04-28 16:53] MED LIST changes: -ASPI-1393 PO; +ASPI-1497 PO; +DIPH25CA83 MT; +FAMO20TA8 MT; -FERR325T6 MT; -GABA-531 MT; -ISOS30TA6 MT; -METO25TA6 MT; +P20 MT
[2020-04-28] MEDS ORDERED: SODIUM CHLORIDE 0.9% 1,000 ML IV ONE (18:45)
[2020-04-28] MEDS ORDERED: ONDANSETRON HCL 4MG/2ML INJ IV ONE (18:45)
[2020-04-28] MEDS ORDERED: MORPHINE SULFATE 4 MG/ML CPJ (NOT FOR IM USE) IV ONE ×2 (18:45→22:30)
[2020-04-28] MEDS ORDERED: LEVETIRACETAM 500MG PREMIX 100 ML IV ONE (18:45)
[2020-04-28 19:25] LABS: CHLORIDE 105 mEq/L (98-107)
[2020-04-28 22:52] LABS: HEMATOCRIT. 42.4 % (36.0-48.0); HEMOGLOBIN. 13.3 g/dL (12.0-16.0); MEAN CORPUSCULAR HEMOGLOBIN 24.5 pg (28.0-32.0); MEAN CORPUSCULAR VOLUME 77.9 fL (81.0-99.0); MEAN PLATELET VOLUME 8.2 fl (7.4-10.4); PLATELET 172 x1000/uL (130-400); RED BLOOD CELL COUNT 5.44 mill/uL (4.2-5.4); RED CELL DISTRIBUTION WIDTH 17.9 % (11.6-14.6)
[2020-04-28] MEDS ORDERED: MORPHINE SULFATE 10 MG/ML CPJ IM ONE (23:15)
[2020-04-28 23:20] LABS: PLATELET ESTIMATE NORMAL
[2020-04-29] MEDS ORDERED: HYDROCODONE/ACETAMINOPHEN 10/325MG TABLET PO ONE (00:45)
[2020-04-29 01:20] VITALS: BP 168/96
== END 2020-04-29 01:32 | disposition home or self-care (01) ==
LOC: ER 16:53
DX: K44.9 Diaphragmatic hernia without obstruction or gangrene (principal); I10 Essential (primary) hypertension; E78.00 Pure hypercholesterolemia, unspecified; Z90.49 Acquired absence of other specified parts of digestive tract; Z95.0 Presence of cardiac pacemaker; Z79.82 Long term (current) use of aspirin; Z79.899 Other long term (current) drug therapy; Z88.0 Allergy status to penicillin; Z91.041 Radiographic dye allergy status
CPT/HCPCS: 36415; 70450; 74176; 80048; 80076; 83690; 84484; 85025; 93005; 96365; 96375; 96376; 99285; J1953; J2270; J2405; J7030

== ENCOUNTER 2021-01-25 12:14 | Inpatient (IN) | payer OTHER, MEDICAID ==
[~2021-01-25] VITALS: Ht 162.6 cm; Wt 65.3 kg
[2021-01-25] MEDS ORDERED: SODIUM CHLORIDE 0.9% 1,000 ML IV ONE ×2 (12:45→15:30)
[2021-01-25 14:25] LABS: CLARITY URINE CLEAR (CLEAR); COLOR URINE YELLOW (YELLOW); KETONES URINE NEGATIVE (NEGATIVE); LEUKOCYTE ESTERASE URINE NEGATIVE (NEGATIVE); NITRITE URINE NEGATIVE (NEGATIVE); OCCULT BLOOD URINE NEGATIVE (NEGATIVE); PROTEIN URINE 2+ (NEGATIVE); SPECIFIC GRAVITY URINE 1.012 (1.005-1.030); UROBILINOGEN URINE 0.2 E.U./dL (0.2-1.0)
[2021-01-25 14:44] LABS: HEMATOCRIT. 36.4 % (36.0-48.0); HEMOGLOBIN. 11.5 g/dL (12.0-16.0); MEAN CORPUSCULAR HEMOGLOBIN 22.6 pg (28.0-32.0); MEAN CORPUSCULAR VOLUME 71.6 fL (81.0-99.0); MEAN PLATELET VOLUME 9.3 fl (7.4-10.4); PLATELET 231 x1000/uL (130-400); RED BLOOD CELL COUNT 5.09 mill/uL (4.2-5.4); RED CELL DISTRIBUTION WIDTH 20.1 % (11.6-14.6)
[2021-01-25 14:49] LABS: CHLORIDE 100 mEq/L (98-107)
[2021-01-25 14:52] LABS: ETHANOL BLOOD < 10 mg/dL
[2021-01-25 14:53] LABS: INR 1.1
[2021-01-25 15:10] LABS: *AMPHETAMINES SCREEN URINE NEGATIVE (NEGATIVE); *BARBITURATES SCREEN URINE NEGATIVE (NEGATIVE); *BENZODIAZEPINES SCREEN URINE NEGATIVE (NEGATIVE); *COCAINE SCREEN URINE NEGATIVE (NEGATIVE); CANNABINOID URINE SCREEN NEGATIVE (NEGATIVE)
[2021-01-25 15:11] LABS: METHADONE URINE SCREEN NEGATIVE (NEGATIVE); OPIATES URINE SCREEN NEGATIVE (NEGATIVE); PHENCYCLIDINE URINE SCREEN NEGATIVE (NEGATIVE)
[2021-01-25] MEDS ORDERED: LEVOFLOXACIN 750MG PREMIX 150 ML IV ONE (15:30)
[2021-01-25] MEDS ORDERED: VANCOMYCIN 1 G PREMIX 200 ML IV ONE (15:30)
[2021-01-25] MEDS ORDERED: KCL 20MEQ/100ML PREMIX 100 ML IV ONE (15:45)
[2021-01-25] MEDS ORDERED: LEVETIRACETAM 500MG PREMIX 100 ML IV ONE (15:45)
[2021-01-25] MEDS ORDERED: POTASSIUM CHLORIDE 20MEQ/PACKET PO ONE (15:45)
[2021-01-25 16:36] LABS: PLATELET ESTIMATE NORMAL
[2021-01-25] MEDS ORDERED: MORPHINE SULFATE 4 MG/ML CPJ (NOT FOR IM USE) IV ONE (17:15)
[2021-01-25] MEDS ORDERED: DOCUSATE SODIUM 100MG CAPSULE PO PRN (19:45)
[2021-01-25] MEDS ORDERED: IPRATROPIUM/ALBUTEROL 0.5-3(2.5)MG/3ML NEB HHN PRN (19:45)
[2021-01-25] MEDS ORDERED: LORAZEPAM 2MG/ML CPJ IV PRN (19:45)
[2021-01-25] MEDS ORDERED: ONDANSETRON HCL 4MG/2ML INJ IV PRN (19:45)
[2021-01-25] MEDS ORDERED: NALOXONE HCL 0.4MG/ML VIAL IV PRN (19:45)
[2021-01-25] MEDS ORDERED: ACETAMINOPHEN 325MG TABLET PO PRN ×2 (19:45)
[2021-01-25] MEDS ORDERED: CLONIDINE 0.1MG TABLET PO PRN (19:45)
[2021-01-25] MEDS ORDERED: LORAZEPAM 0.5MG TABLET PO PRN (19:45)
[2021-01-25 20:41] LABS: CREATINE KINASE MB FRACTION 1.2 ng/mL (0.5-3.6)
[2021-01-25] MEDS: HYDROCODONE/ACETAMINOPHEN 5/325MG TABLET PO PRN (20:41)
[2021-01-25] MEDS ORDERED: HYDRALAZINE 20MG/ML VIAL IV PRN (22:45)
[2021-01-25] MEDS: MORPHINE SULFATE 4 MG/ML CPJ (NOT FOR IM USE) IV PRN (23:06)
[2021-01-25 23:45] VITALS: BP 166/112
[2021-01-26] VITALS (7 sets, daily range): BP systolic 119–171; BP diastolic 65–116
[2021-01-26] MEDS ORDERED: GABA-532 PO (00:34)
[2021-01-26] MEDS: MORPHINE SULFATE 4 MG/ML CPJ (NOT FOR IM USE) IV PRN ×4 (03:19→21:27)
[2021-01-26] MEDS: LEVETIRACETAM 750 MG in SODIUM CHLORIDE 0.9% 100 ML IV SCH ×3 (09:07→21:25)
[2021-01-26 09:30] LABS: HEMATOCRIT. 35.5 % (36.0-48.0); HEMOGLOBIN. 11.2 g/dL (12.0-16.0); MEAN CORPUSCULAR HEMOGLOBIN 22.5 pg (28.0-32.0); MEAN CORPUSCULAR VOLUME 71.3 fL (81.0-99.0); MEAN PLATELET VOLUME 8.5 fl (7.4-10.4); PLATELET 231 x1000/uL (130-400); RED BLOOD CELL COUNT 4.97 mill/uL (4.2-5.4)
[2021-01-26 11:10] LABS: PLATELET ESTIMATE NORMAL
[2021-01-26 16:34] LABS: CREATINE KINASE MB FRACTION 1.6 ng/mL (0.5-3.6)
[2021-01-27] VITALS: BP 121/91
[2021-01-27 04:00] VITALS: BP 131/85
[2021-01-27] MEDS: MORPHINE SULFATE 4 MG/ML CPJ (NOT FOR IM USE) IV PRN (05:29)
[2021-01-27 08:00] VITALS: BP 121/80
[2021-01-27 12:00] VITALS: BP 146/89
[2021-01-27] MEDS: LEVETIRACETAM 250MG TABLET PO SCH ×2 (12:05→20:35)
[2021-01-27] MEDS: HYDROCODONE/ACETAMINOPHEN 5/325MG TABLET PO PRN ×3 (12:05→20:35)
[2021-01-27] MEDS ORDERED: POTASSIUM CHLORIDE 20MEQ TABLET SR PO NR (12:15)
[2021-01-27] MEDS ORDERED: MAGNESIUM 2 G PREMIX 50 ML IV NR (14:00)
[2021-01-27 16:00] VITALS: BP 113/73
[2021-01-27] MEDS: METOPROLOL TARTRATE 25MG TABLET PO SCH (17:48)
[2021-01-27 19:41] VITALS: BP 130/79
[2021-01-28] VITALS (7 sets, daily range): BP systolic 118–145; BP diastolic 60–91
[2021-01-28] MEDS: MORPHINE SULFATE 4 MG/ML CPJ (NOT FOR IM USE) IV PRN ×7 (00:37→22:14)
[2021-01-28 06:07] LABS: CHLORIDE 102 mEq/L (98-107)
[2021-01-28 06:08] LABS: HEMATOCRIT. 34.3 % (36.0-48.0); HEMOGLOBIN. 10.5 g/dL (12.0-16.0); MEAN CORPUSCULAR HEMOGLOBIN 21.8 pg (28.0-32.0); MEAN CORPUSCULAR VOLUME 71.3 fL (81.0-99.0); MEAN PLATELET VOLUME 8.7 fl (7.4-10.4); PLATELET 230 x1000/uL (130-400); RED BLOOD CELL COUNT 4.82 mill/uL (4.2-5.4)
[2021-01-28] MEDS: METOPROLOL TARTRATE 25MG TABLET PO SCH (06:33)
[2021-01-28] MEDS ORDERED: LIDOCAINE HCL 1% 20ML VIAL (Pyxis) INJ ONE (08:03)
[2021-01-28] MEDS: LEVETIRACETAM 250MG TABLET PO SCH ×2 (08:42→21:32)
[2021-01-28] MEDS: PANTOPRAZOLE 40MG DR TABLET PO SCH (13:15)
[2021-01-28] MEDS: POTASSIUM CHLORIDE 20MEQ TABLET SR PO SCH (13:15)
[2021-01-28] MEDS: METOPROLOL TARTRATE 50MG TABLET PO SCH (17:41)
[2021-01-28 21:27] LABS: PLATELET ESTIMATE NORMAL
[2021-01-29] VITALS: BP 125/80
[2021-01-29] MEDS: MORPHINE SULFATE 4 MG/ML CPJ (NOT FOR IM USE) IV PRN ×2 (02:52→20:37)
[2021-01-29 04:00] VITALS: BP 134/87
[2021-01-29] MEDS: METOPROLOL TARTRATE 50MG TABLET PO SCH ×2 (05:53→16:35)
[2021-01-29] MEDS: PANTOPRAZOLE 40MG DR TABLET PO SCH (05:53)
[2021-01-29 07:30] LABS: BASOPHILS % 0.3 % (0.0-2.0); EOSINOPHILS % 1.4 % (0.0-5.0); HEMATOCRIT. 36.2 % (36.0-48.0); HEMOGLOBIN. 10.9 g/dL (12.0-16.0); MEAN CORPUSCULAR HEMOGLOBIN 21.7 pg (28.0-32.0); MEAN CORPUSCULAR VOLUME 72.4 fL (81.0-99.0); MEAN PLATELET VOLUME 8.6 fl (7.4-10.4); MONOCYTES % 9.6 % (2.0-8.0); NEUTROPHILS % 67.7 % (40.0-76.0); PLATELET 204 x1000/uL (130-400)
[2021-01-29 07:45] LABS: CHLORIDE 100 mEq/L (98-107)
[2021-01-29 08:00] VITALS: BP 128/83
[2021-01-29] MEDS: LEVETIRACETAM 250MG TABLET PO SCH ×2 (08:55→20:28)
[2021-01-29] MEDS: POTASSIUM CHLORIDE 20MEQ TABLET SR PO SCH (08:55)
[2021-01-29] MEDS: HYDROCODONE/ACETAMINOPHEN 5/325MG TABLET PO PRN ×2 (08:55→15:17)
[2021-01-29 12:00] VITALS: BP 125/83
[2021-01-29 16:00] VITALS: BP 114/70
[2021-01-29 20:00] VITALS: BP 150/85
[2021-01-30] VITALS: BP 135/82
[2021-01-30] MEDS: MORPHINE SULFATE 4 MG/ML CPJ (NOT FOR IM USE) IV PRN ×3 (01:00→10:18)
[2021-01-30 04:00] VITALS: BP 148/92
[2021-01-30] MEDS: METOPROLOL TARTRATE 50MG TABLET PO SCH (05:04)
[2021-01-30] MEDS: PANTOPRAZOLE 40MG DR TABLET PO SCH (05:04)
[2021-01-30 08:00] VITALS: BP 131/74
[2021-01-30] MEDS: LEVETIRACETAM 250MG TABLET PO SCH (09:22)
[2021-01-30] MEDS: POTASSIUM CHLORIDE 20MEQ TABLET SR PO SCH (09:23)
[2021-01-30 12:00] VITALS: BP 127/75
[2021-01-30] MEDS ORDERED: ONDA8TAB13 MT ×2 (13:04)
[2021-01-30] MEDS ORDERED: OXYC-100 MT ×2 (13:04)
[2021-01-30] MEDS ORDERED: METO-539 PO ×3 (13:08→14:34)
[2021-01-30] MEDS: HYDROCODONE/ACETAMINOPHEN 5/325MG TABLET PO PRN (13:51)
[2021-01-30 13:53] VITALS: BP 127/75
[2021-01-30] MEDS ORDERED: OXYC-662 MT (14:34)
[2021-01-30] MEDS ORDERED: ONDA4TAB11 PO (14:34)
== END 2021-01-30 15:45 | disposition home or self-care (01) | DRG 100 ==
LOC: ER 12:14 → MICUSO 16:30 → 7EST 21:30
PROVIDERS: ADMIT Internal Medicine; ATTEND Internal Medicine
PROC: 02HV33Z Insertion of Infusion Device into Superior Vena Cava, Percutaneous Approach (ICD-10-PCS; principal; 2021-01-28)
PROC: B548ZZA Ultrasonography of Superior Vena Cava, Guidance (ICD-10-PCS; 2021-01-28)
PROC: 4A10X4Z Monitoring of Central Nervous Electrical Activity, External Approach (ICD-10-PCS; 2021-01-28)
DX: G40.909 Epilepsy, unspecified, not intractable, without status epilepticus (principal); I21.4 Non-ST elevation (NSTEMI) myocardial infarction; G93.41 Metabolic encephalopathy; I47.2 Ventricular tachycardia; K44.9 Diaphragmatic hernia without obstruction or gangrene; E78.00 Pure hypercholesterolemia, unspecified; E87.6 Hypokalemia; E11.9 Type 2 diabetes mellitus without complications; Z20.822 Contact with and (suspected) exposure to COVID-19; I10 Essential (primary) hypertension; Z86.73 Personal history of transient ischemic attack (TIA), and cerebral infarction without residual deficits; Z86.711 Personal history of pulmonary embolism; Z90.49 Acquired absence of other specified parts of digestive tract
CPT/HCPCS: 36415; 71045; 74176; 76937; 80048; 80053; 80305; 80320; 81003; 82550; 82553; 82962; 83605; 83735; 84484; 85025; 87426; 93005; 93306; 95816; 99291; C1725; C1893; J0360; J1953; J1956; J2270; J3370; J3475; J3480; J3490; J7030; J7050; G0480

== ENCOUNTER 2021-03-28 07:51 | Inpatient (IN) | payer OTHER, MEDICAID ==
[~2021-03-28] VITALS: Ht 167.6 cm; Wt 59.7 kg
[~2021-03-28 07:51] MED LIST changes: +GABA-532 PO; -HYDR-4001 MT; +METO-539 PO; +ONDA4TAB11 PO; +OXYC-662 MT
[2021-03-28] MEDS ORDERED: LEVETIRACETAM 500MG PREMIX 100 ML IV ONE (08:45)
[2021-03-28] MEDS ORDERED: SODIUM CHLORIDE 0.9% 500 ML IV ONE (08:45)
[2021-03-28 09:05] LABS: CHLORIDE 100 mEq/L (98-107)
[2021-03-28 09:06] LABS: HEMATOCRIT. 33.4 % (36.0-48.0); HEMOGLOBIN. 10.3 g/dL (12.0-16.0); MEAN CORPUSCULAR HEMOGLOBIN 21.7 pg (28.0-32.0); MEAN CORPUSCULAR VOLUME 70.3 fL (81.0-99.0); MEAN PLATELET VOLUME 8.6 fl (7.4-10.4); PLATELET 199 x1000/uL (130-400); RED BLOOD CELL COUNT 4.76 mill/uL (4.2-5.4); RED CELL DISTRIBUTION WIDTH 19.8 % (11.6-14.6)
[2021-03-28 09:09] LABS: ETHANOL BLOOD < 10 mg/dL
[2021-03-28] MEDS ORDERED: POTASSIUM CHLORIDE 20MEQ TABLET SR PO NR (09:30)
[2021-03-28] MEDS ORDERED: MAGNESIUM 1 G PREMIX 100 ML IV NR (10:00)
[2021-03-28 10:01] LABS: PLATELET ESTIMATE NORMAL
[2021-03-28] MEDS ORDERED: KCL 10MEQ/50ML PREMIX 50 ML IV SCH (10:30)
[2021-03-28 10:42] LABS: CLARITY URINE CLEAR (CLEAR); COLOR URINE YELLOW (YELLOW); KETONES URINE TRACE (NEGATIVE); LEUKOCYTE ESTERASE URINE NEGATIVE (NEGATIVE); NITRITE URINE NEGATIVE (NEGATIVE); OCCULT BLOOD URINE TRACE (NEGATIVE); PH URINE 8.5 (4.5-8.0); PROTEIN URINE 2+ (NEGATIVE); SPECIFIC GRAVITY URINE 1.011 (1.005-1.030)
[2021-03-28] MEDS ORDERED: ONDANSETRON HCL 4MG/2ML INJ IV ONE (10:45)
[2021-03-28 11:00] LABS: *AMPHETAMINES SCREEN URINE NEGATIVE (NEGATIVE); *BARBITURATES SCREEN URINE NEGATIVE (NEGATIVE); *BENZODIAZEPINES SCREEN URINE PRESUMTIVE POSITIVE (NEGATIVE)
[2021-03-28 11:01] LABS: *COCAINE SCREEN URINE NEGATIVE (NEGATIVE); CANNABINOID URINE SCREEN NEGATIVE (NEGATIVE); METHADONE URINE SCREEN NEGATIVE (NEGATIVE)
[2021-03-28 11:02] LABS: OPIATES URINE SCREEN PRESUMTIVE POSITIVE (NEGATIVE); PHENCYCLIDINE URINE SCREEN NEGATIVE (NEGATIVE)
[2021-03-28] MEDS ORDERED: METOPROLOL TARTRATE 50MG TABLET PO ONE (13:15)
[2021-03-28] MEDS ORDERED: LORAZEPAM 2MG/ML CPJ IV PRN (14:15)
[2021-03-28] MEDS ORDERED: ONDANSETRON HCL 4MG/2ML INJ IV PRN (14:15)
[2021-03-28] MEDS ORDERED: CLONIDINE 0.1MG TABLET PO PRN (14:15)
[2021-03-28] MEDS ORDERED: IPRATROPIUM/ALBUTEROL 0.5-3(2.5)MG/3ML NEB HHN PRN (14:15)
[2021-03-28] MEDS ORDERED: DIPHENHYDRAMINE 50MG/ML VIAL IV PRN (14:15)
[2021-03-28] MEDS ORDERED: NALOXONE HCL 0.4MG/ML VIAL IV PRN (17:15)
[2021-03-28] MEDS ORDERED: HYDRALAZINE 20MG/ML VIAL IV PRN (17:15)
[2021-03-28] MEDS ORDERED: NIFEDIPINE XL 60MG TAB PO NR (19:15)
[2021-03-28] MEDS ORDERED: LEVETIRACETAM 500MG PREMIX 100 ML IV SCH (21:00)
[2021-03-28 21:30] VITALS: BP 140/86
[2021-03-28 22:00] VITALS: BP 118/83
[2021-03-28] MEDS: AMLODIPINE 5MG TABLET PO SCH (22:52)
[2021-03-29] VITALS: BP 140/86
[2021-03-29] MEDS ORDERED: DEXTROSE 50% WATER 50ML SYRINGE IV PRN
[2021-03-29 04:00] VITALS: BP 101/66
[2021-03-29] MEDS: ACETAMINOPHEN 325MG TABLET PO PRN ×2 (06:07→09:14)
[2021-03-29] MEDS: BLOOD SUGAR DIAGNOSTIC STRIP TEST SCH ×4 (07:49→20:47)
[2021-03-29] MEDS: INSULIN LISPRO 100 UNITS/ML SUBCUT SCH ×4 (07:50→20:54)
[2021-03-29 08:00] VITALS: BP 99/60
[2021-03-29] MEDS: AMLODIPINE 5MG TABLET PO SCH ×2 (08:29→08:30)
[2021-03-29 08:38] LABS: CHLORIDE 102 mEq/L (98-107)
[2021-03-29 08:47] LABS: LDL CHOLESTEROL 52 mg/dL (5-100)
[2021-03-29 08:48] LABS: HDL CHOLESTEROL 99 mg/dL (40-59)
[2021-03-29] MEDS: LEVETIRACETAM 500MG PREMIX 100 ML IV SCH ×2 (10:20→20:46)
[2021-03-29 11:03] LABS: HEMATOCRIT. 35.6 % (36.0-48.0); MEAN CORPUSCULAR HEMOGLOBIN 21.8 pg (28.0-32.0); MEAN CORPUSCULAR VOLUME 70.5 fL (81.0-99.0); MEAN PLATELET VOLUME 8.5 fl (7.4-10.4); PLATELET 172 x1000/uL (130-400); RED BLOOD CELL COUNT 5.05 mill/uL (4.2-5.4)
[2021-03-29] MEDS: MORPHINE SULFATE 2 MG/ML CPJ (NOT FOR IM USE) IV PRN ×3 (11:53→17:40)
[2021-03-29 12:00] VITALS: BP 119/76
[2021-03-29 12:17] LABS: PLATELET ESTIMATE NORMAL
[2021-03-29] MEDS: SODIUM CHLORIDE 0.9% 1,000 ML IV SCH (14:15)
[2021-03-29] MEDS ORDERED: POTASSIUM CHLORIDE 20MEQ TABLET SR PO NR (14:15)
[2021-03-29 16:00] VITALS: BP 140/89
[2021-03-29] MEDS ORDERED: ENOXAPARIN 30MG/0.3ML SYR SUBCUT SCH (16:30)
[2021-03-29 20:00] VITALS: BP 111/77
[2021-03-30] VITALS: BP 123/85
[2021-03-30] MEDS: MORPHINE SULFATE 2 MG/ML CPJ (NOT FOR IM USE) IV PRN ×5 (00:31→21:26)
[2021-03-30] MEDS: SODIUM CHLORIDE 0.9% 1,000 ML IV SCH ×3 (00:31→20:15)
[2021-03-30 04:00] VITALS: BP 127/86
[2021-03-30 05:20] LABS: HEMATOCRIT. 31.4 % (36.0-48.0); HEMOGLOBIN. 9.7 g/dL (12.0-16.0); MEAN CORPUSCULAR HEMOGLOBIN 21.8 pg (28.0-32.0); MEAN CORPUSCULAR VOLUME 70.7 fL (81.0-99.0); MEAN PLATELET VOLUME 8.4 fl (7.4-10.4); PLATELET 198 x1000/uL (130-400); RED BLOOD CELL COUNT 4.44 mill/uL (4.2-5.4); RED CELL DISTRIBUTION WIDTH 19.9 % (11.6-14.6)
[2021-03-30 05:28] LABS: CHLORIDE 109 mEq/L (98-107)
[2021-03-30 05:38] LABS: PHOSPHORUS 2.6 mg/dL (2.5-4.9)
[2021-03-30 05:40] LABS: CREATINE KINASE 198 IU/L (26-192)
[2021-03-30] MEDS: BLOOD SUGAR DIAGNOSTIC STRIP TEST SCH ×4 (06:26→21:21)
[2021-03-30] MEDS: INSULIN LISPRO 100 UNITS/ML SUBCUT SCH ×4 (07:50→21:00)
[2021-03-30 07:58] VITALS: BP 105/71
[2021-03-30] MEDS: LEVETIRACETAM 500MG PREMIX 100 ML IV SCH ×2 (08:46→21:26)
[2021-03-30 11:57] VITALS: BP 130/89
[2021-03-30 13:14] LABS: PLATELET ESTIMATE NORMAL
[2021-03-30] MEDS ORDERED: POTASSIUM CHLORIDE 20MEQ TABLET SR PO NR (14:30)
[2021-03-30] MEDS: FAMOTIDINE 20MG/2ML VIAL IV SCH ×2 (14:52→21:26)
[2021-03-30] MEDS ORDERED: POLYETHYLENE GLYCOL 3350 (17GM) 1 DOSE PACK PO SCH (15:30)
[2021-03-30 15:53] VITALS: BP 146/86
[2021-03-30] MEDS ORDERED: ENOXAPARIN 60MG/0.6ML SYR SUBCUT SCH (16:00)
[2021-03-30] MEDS ORDERED: FAMOTIDINE 20MG/2ML VIAL IV SCH (17:00)
[2021-03-30] MEDS: METOCLOPRAMIDE HCL 10MG/2ML VIAL IV SCH ×2 (18:38→23:46)
[2021-03-30 20:35] VITALS: BP 119/81
[2021-03-30] MEDS: LEVETIRACETAM 1,000 MG in SODIUM CHLORIDE 0.9% 100 ML IV SCH (21:30)
[2021-03-31] VITALS (7 sets, daily range): BP systolic 140–159; BP diastolic 84–93
[2021-03-31] MEDS: MORPHINE SULFATE 2 MG/ML CPJ (NOT FOR IM USE) IV PRN ×4 (03:51→17:39)
[2021-03-31 05:42] LABS: HEMATOCRIT. 27.5 % (36.0-48.0); HEMOGLOBIN. 9.1 g/dL (12.0-16.0); MEAN CORPUSCULAR HEMOGLOBIN 23.5 pg (28.0-32.0); MEAN CORPUSCULAR VOLUME 70.6 fL (81.0-99.0); MEAN PLATELET VOLUME 8.5 fl (7.4-10.4); PLATELET 174 x1000/uL (130-400); RED BLOOD CELL COUNT 3.89 mill/uL (4.2-5.4); RED CELL DISTRIBUTION WIDTH 19.8 % (11.6-14.6)
[2021-03-31] MEDS: METOCLOPRAMIDE HCL 10MG/2ML VIAL IV SCH ×2 (06:22→13:45)
[2021-03-31] MEDS: BLOOD SUGAR DIAGNOSTIC STRIP TEST SCH ×3 (06:22→18:14)
[2021-03-31] MEDS: SODIUM CHLORIDE 0.9% 1,000 ML IV SCH (06:22)
[2021-03-31 06:24] LABS: CHLORIDE 115 mEq/L (98-107)
[2021-03-31] MEDS ORDERED: OMEPRAZOLE 20MG CAPSULE EXTENDED RELEASE PO SCH (07:20)
[2021-03-31] MEDS: INSULIN LISPRO 100 UNITS/ML SUBCUT SCH ×3 (07:38→17:50)
[2021-03-31] MEDS ORDERED: ENOXAPARIN 60MG/0.6ML SYR SUBCUT SCH (09:00)
[2021-03-31] MEDS: LEVETIRACETAM 1,000 MG in SODIUM CHLORIDE 0.9% 100 ML IV SCH (09:24)
[2021-03-31] MEDS ORDERED: LEVE1000 MT (12:24)
[2021-03-31 12:52] LABS: PLATELET ESTIMATE NORMAL
[2021-03-31] MEDS ORDERED: POTASSIUM PHOS,M-BASIC-D-BASIC 15 MMOL in DEXT 5% WATER 245 ML IV SCH (14:00)
== END 2021-03-31 20:20 | disposition home or self-care (01) | DRG 100 ==
LOC: ER 07:51 → 6WST 13:31 → ENRESERV 20:38
PROVIDERS: ADMIT Internal Medicine; ATTEND Internal Medicine
DX: G40.909 Epilepsy, unspecified, not intractable, without status epilepticus (principal); K85.90 Acute pancreatitis without necrosis or infection, unspecified; E44.0 Moderate protein-calorie malnutrition; N17.9 Acute kidney failure, unspecified; I13.0 Hypertensive heart and chronic kidney disease with heart failure and stage 1 through stage 4 chronic kidney disease, or unspecified chronic kidney disease; E87.1 Hypo-osmolality and hyponatremia; I50.9 Heart failure, unspecified; I16.0 Hypertensive urgency; E87.6 Hypokalemia; I25.10 Atherosclerotic heart disease of native coronary artery without angina pectoris; K21.9 Gastro-esophageal reflux disease without esophagitis; E78.00 Pure hypercholesterolemia, unspecified; I45.6 Pre-excitation syndrome; G89.4 Chronic pain syndrome; I48.91 Unspecified atrial fibrillation; E78.5 Hyperlipidemia, unspecified; N18.9 Chronic kidney disease, unspecified; Z60.2 Problems related to living alone; K29.70 Gastritis, unspecified, without bleeding; K86.89 Other specified diseases of pancreas; R74.01 Elevation of levels of liver transaminase levels; D64.9 Anemia, unspecified; E83.42 Hypomagnesemia; Z90.49 Acquired absence of other specified parts of digestive tract; Z79.01 Long term (current) use of anticoagulants; Z86.73 Personal history of transient ischemic attack (TIA), and cerebral infarction without residual deficits; Z86.711 Personal history of pulmonary embolism; Z88.0 Allergy status to penicillin; Z91.041 Radiographic dye allergy status; Z79.899 Other long term (current) drug therapy; Z79.82 Long term (current) use of aspirin; Z95.0 Presence of cardiac pacemaker; Z82.49 Family history of ischemic heart disease and other diseases of the circulatory system; Z68.21 Body mass index [BMI] 21.0-21.9, adult
CPT/HCPCS: 36415; 71045; 74176; 76700; 76770; 80048; 80053; 80061; 80305; 80320; 81003; 82542; 82550; 82962; 83036; 83735; 84100; 84443; 84484; 85025; 93005; 93970; 99285; J0360; J1650; J1815; J1953; J2060; J2270; J2405; J2765; J3475; J3480; J3490; J7030; J7040; J7042; J7050; J7060; A4315; G0480

== ENCOUNTER 2021-05-06 10:49 | Inpatient (IN) | payer OTHER, MEDICAID ==
[~2021-05-06] VITALS: Ht 162.6 cm; Wt 59.4 kg
[~2021-05-06 10:49] MED LIST changes: -FAMO20TA8 MT; +LEVE1000 MT; -LEVE500T19 PO; -P20 MT
[2021-05-06] MEDS ORDERED: ONDANSETRON 4MG ODT PO STA (10:55)
[2021-05-06] MEDS ORDERED: MORPHINE SULFATE 4 MG/ML CPJ (NOT FOR IM USE) IV STA (10:55)
[2021-05-06 12:08] LABS: CLARITY URINE CLEAR (CLEAR); COLOR URINE YELLOW (YELLOW); HEMOGLOBIN. 12.4 g/dL (12.0-16.0); KETONES URINE TRACE (NEGATIVE); LEUKOCYTE ESTERASE URINE NEGATIVE (NEGATIVE); MEAN CORPUSCULAR HEMOGLOBIN 22.5 pg (28.0-32.0); MEAN CORPUSCULAR VOLUME 70.9 fL (81.0-99.0); MEAN PLATELET VOLUME 8.8 fl (7.4-10.4); NITRITE URINE NEGATIVE (NEGATIVE); OCCULT BLOOD URINE TRACE (NEGATIVE); PH URINE 8.5 (4.5-8.0); PLATELET 389 x1000/uL (130-400); PROTEIN URINE TRACE (NEGATIVE); SPECIFIC GRAVITY URINE 1.011 (1.005-1.030); UROBILINOGEN URINE 0.2 E.U./dL (0.2-1.0)
[2021-05-06 12:11] LABS: CHLORIDE 102 mEq/L (98-107)
[2021-05-06] MEDS ORDERED: ONDANSETRON HCL 4MG/2ML INJ IV ONE (13:15)
[2021-05-06] MEDS ORDERED: SODIUM CHLORIDE 0.9% 1,000 ML IV ONE (13:15)
[2021-05-06] MEDS ORDERED: MORPHINE SULFATE 4 MG/ML CPJ (NOT FOR IM USE) IV ONE ×2 (13:15→13:45)
[2021-05-06 14:05] LABS: PLATELET ESTIMATE NORMAL
[2021-05-06] MEDS ORDERED: ONDANSETRON HCL 4MG/2ML INJ IV PRN (14:15)
[2021-05-06] MEDS ORDERED: POTASSIUM CHLORIDE INJ 40 MEQ in DEXT 5% WATER 250 ML IV ONE (14:15)
[2021-05-06] MEDS ORDERED: ACETAMINOPHEN 325MG TABLET PO PRN (14:30)
[2021-05-06] MEDS: KCL 20MEQ/100ML PREMIX 100 ML IV SCH ×2 (14:45→16:45)
[2021-05-06] MEDS ORDERED: HYDRALAZINE 20MG/ML VIAL IV NR (15:36)
[2021-05-06] MEDS ORDERED: MAGNESIUM/ALUMINUM HYDROXIDE/SIMETHICONE 30ML UDC PO PRN (20:15)
[2021-05-06] MEDS ORDERED: METOPROLOL TARTRATE 100MG TABLET PO ONE (20:15)
[2021-05-06] MEDS: METOPROLOL TARTRATE 100MG TABLET PO SCH (21:00)
[2021-05-06] MEDS ORDERED: METOPROLOL TARTRATE 50MG TABLET PO SCH (21:00)
[2021-05-06 22:15] VITALS: BP 95/66
[2021-05-06 22:30] VITALS: BP 95/66
[2021-05-07] VITALS (7 sets, daily range): BP systolic 91–137; BP diastolic 50–92
[2021-05-07] MEDS: HYDROCODONE/ACETAMINOPHEN 5/325MG TABLET PO PRN ×4 (00:18→15:08)
[2021-05-07] MEDS: LEVETIRACETAM 500MG TABLET PO SCH ×3 (00:18→20:24)
[2021-05-07] MEDS ORDERED: NALOXONE HCL 0.4MG/ML VIAL IV PRN (00:45)
[2021-05-07] MEDS: OMEPRAZOLE 20MG CAPSULE EXTENDED RELEASE PO SCH (05:31)
[2021-05-07 07:29] LABS: HEMATOCRIT. 31.8 % (36.0-48.0); HEMOGLOBIN. 10.1 g/dL (12.0-16.0); MEAN CORPUSCULAR HEMOGLOBIN 22.4 pg (28.0-32.0); MEAN CORPUSCULAR VOLUME 70.8 fL (81.0-99.0); MEAN PLATELET VOLUME 8.6 fl (7.4-10.4); PLATELET 333 x1000/uL (130-400); RED BLOOD CELL COUNT 4.49 mill/uL (4.2-5.4)
[2021-05-07] MEDS: METOPROLOL TARTRATE 100MG TABLET PO SCH ×2 (08:46→20:24)
[2021-05-07 16:56] LABS: TOTAL IRON BINDING CAPACITY 404 ug/dL (250-450)
[2021-05-07 17:20] LABS: FOLIC ACID (FOLATE) SERUM 15.1 ng/mL (>5.38)
[2021-05-07] MEDS ORDERED: MORPHINE SULFATE 2 MG/ML CPJ (NOT FOR IM USE) IV NR (19:00)
[2021-05-07 21:09] LABS: PLATELET ESTIMATE NORMAL
[2021-05-08] MEDS: HYDROCODONE/ACETAMINOPHEN 5/325MG TABLET PO PRN ×4 (00:01→21:20)
[2021-05-08 04:00] VITALS: BP 126/76
[2021-05-08] MEDS: OMEPRAZOLE 20MG CAPSULE EXTENDED RELEASE PO SCH (06:13)
[2021-05-08 08:00] VITALS: BP 118/84
[2021-05-08] MEDS: METOPROLOL TARTRATE 100MG TABLET PO SCH ×3 (09:35→21:19)
[2021-05-08] MEDS: LEVETIRACETAM 500MG TABLET PO SCH ×2 (09:36→21:20)
[2021-05-08 12:00] VITALS: BP 124/76
[2021-05-08] MEDS: MORPHINE SULFATE 2 MG/ML CPJ (NOT FOR IM USE) IV PRN ×2 (13:32→17:29)
[2021-05-08 15:47] VITALS: BP 151/96
[2021-05-08 20:00] VITALS: BP 107/73
[2021-05-09] VITALS: BP 123/78
[2021-05-09] MEDS: MORPHINE SULFATE 2 MG/ML CPJ (NOT FOR IM USE) IV PRN (01:04)
[2021-05-09] MEDS: HYDROCODONE/ACETAMINOPHEN 5/325MG TABLET PO PRN ×3 (03:52→13:16)
[2021-05-09 04:00] VITALS: BP 105/66
[2021-05-09] MEDS: OMEPRAZOLE 20MG CAPSULE EXTENDED RELEASE PO SCH (06:24)
[2021-05-09 08:00] VITALS: BP 112/65
[2021-05-09 08:29] LABS: HEMATOCRIT. 32.6 % (36.0-48.0); HEMOGLOBIN. 10.4 g/dL (12.0-16.0); MEAN CORPUSCULAR HEMOGLOBIN 22.7 pg (28.0-32.0); MEAN CORPUSCULAR VOLUME 71.2 fL (81.0-99.0); MEAN PLATELET VOLUME 8.7 fl (7.4-10.4); PLATELET 272 x1000/uL (130-400); RED BLOOD CELL COUNT 4.58 mill/uL (4.2-5.4); RED CELL DISTRIBUTION WIDTH 20.6 % (11.6-14.6)
[2021-05-09] MEDS: LEVETIRACETAM 500MG TABLET PO SCH (08:41)
[2021-05-09] MEDS: METOPROLOL TARTRATE 100MG TABLET PO SCH (08:41)
[2021-05-09 08:52] LABS: CHLORIDE 105 mEq/L (98-107)
[2021-05-09 12:00] VITALS: BP 101/51
[2021-05-09] MEDS ORDERED: POTASSIUM CHLORIDE 20MEQ/PACKET PO SCH (12:00)
[2021-05-09] MEDS ORDERED: OMEP20TA2 PO (13:05)
[2021-05-09 13:10] VITALS: BP 107/60
[2021-05-09 13:59] LABS: PLATELET ESTIMATE NORMAL
== END 2021-05-09 18:24 | disposition home or self-care (01) | DRG 392 ==
LOC: ER 10:49 → MICUSO 14:12 → 8WST 23:28
PROVIDERS: ADMIT Internal Medicine; ATTEND Internal Medicine
DX: K44.9 Diaphragmatic hernia without obstruction or gangrene (principal); K21.9 Gastro-esophageal reflux disease without esophagitis; D64.9 Anemia, unspecified; E78.5 Hyperlipidemia, unspecified; E87.6 Hypokalemia; G40.909 Epilepsy, unspecified, not intractable, without status epilepticus; I11.0 Hypertensive heart disease with heart failure; I16.0 Hypertensive urgency; E78.00 Pure hypercholesterolemia, unspecified; Z20.822 Contact with and (suspected) exposure to COVID-19; I25.10 Atherosclerotic heart disease of native coronary artery without angina pectoris; I45.6 Pre-excitation syndrome; I50.9 Heart failure, unspecified; Z86.711 Personal history of pulmonary embolism; Z90.49 Acquired absence of other specified parts of digestive tract; Z95.0 Presence of cardiac pacemaker; Z88.0 Allergy status to penicillin; Z91.041 Radiographic dye allergy status
CPT/HCPCS: 36415; 71045; 74176; 80048; 80053; 81003; 82270; 82607; 82728; 82746; 83540; 83550; 84484; 85025; 85044; 87077; 87426; 93005; 99285; J0360; J2270; J2405; J3480; J7030; Q0162

== ENCOUNTER 2021-06-27 11:23 | Inpatient (IN) | payer OTHER, MEDICAID ==
[~2021-06-27] VITALS: Ht 162.6 cm; Wt 58.7 kg
[2021-06-27] MEDS ORDERED: ONDANSETRON HCL 4MG/2ML INJ IV STA (11:51)
[2021-06-27] MEDS ORDERED: MORPHINE SULFATE 4 MG/ML CPJ (NOT FOR IM USE) IV STA (11:51)
[2021-06-27] MEDS ORDERED: SODIUM CHLORIDE 0.9% 1,000 ML IV ONE (12:00)
[2021-06-27] MEDS ORDERED: LORAZEPAM 2MG/ML CPJ IV ONE ×2 (12:00→14:00)
[2021-06-27] MEDS ORDERED: LEVETIRACETAM 500MG PREMIX 100 ML IV ONE (12:00)
[2021-06-27 12:50] LABS: HEMATOCRIT. 36.9 % (36.0-48.0); HEMOGLOBIN. 11.3 g/dL (12.0-16.0); MEAN CORPUSCULAR HEMOGLOBIN 22.1 pg (28.0-32.0); MEAN PLATELET VOLUME 8.5 fl (7.4-10.4); PLATELET 158 x1000/uL (130-400); RED BLOOD CELL COUNT 5.12 mill/uL (4.2-5.4); RED CELL DISTRIBUTION WIDTH 20.9 % (11.6-14.6)
[2021-06-27 12:55] LABS: CHLORIDE 100 mEq/L (98-107)
[2021-06-27 12:59] LABS: INR 1.1; PARTIAL THROMBOPLASTIN TIME 23.2 sec (23.4-31.0); PROTHROMBIN TIME 11.5 sec (9.6-11.0)
[2021-06-27 13:34] LABS: PLATELET ESTIMATE NORMAL
[2021-06-27 13:37] LABS: ETHANOL BLOOD < 10 mg/dL
[2021-06-27] MEDS ORDERED: ONDANSETRON HCL 4MG/2ML INJ IV ONE (14:00)
[2021-06-27] MEDS ORDERED: SODIUM CHLORIDE 0.9% 1000ML BAG (SEPSIS BOLUS) IV ONE (15:15)
[2021-06-27] MEDS ORDERED: LEVOFLOXACIN 750MG PREMIX 150 ML IV ONE (15:15)
[2021-06-27] MEDS ORDERED: ASPIRIN 81MG TABLET PO ONE (15:15)
[2021-06-27 16:00] LABS: *AMPHETAMINES SCREEN URINE NEGATIVE (NEGATIVE); *BARBITURATES SCREEN URINE NEGATIVE (NEGATIVE); *BENZODIAZEPINES SCREEN URINE NEGATIVE (NEGATIVE)
[2021-06-27 16:01] LABS: *COCAINE SCREEN URINE NEGATIVE (NEGATIVE); CANNABINOID URINE SCREEN NEGATIVE (NEGATIVE); METHADONE URINE SCREEN NEGATIVE (NEGATIVE); OPIATES URINE SCREEN PRESUMTIVE POSITIVE (NEGATIVE); PHENCYCLIDINE URINE SCREEN NEGATIVE (NEGATIVE)
[2021-06-27 16:10] LABS: CLARITY URINE CLEAR (CLEAR); COLOR URINE YELLOW (YELLOW); KETONES URINE 1+ (NEGATIVE); LEUKOCYTE ESTERASE URINE NEGATIVE (NEGATIVE); NITRITE URINE NEGATIVE (NEGATIVE); OCCULT BLOOD URINE TRACE (NEGATIVE); PROTEIN URINE 2+ (NEGATIVE); SPECIFIC GRAVITY URINE 1.012 (1.005-1.030); UROBILINOGEN URINE 0.2 E.U./dL (0.2-1.0)
[2021-06-27] MEDS ORDERED: DEXAMETHASONE 10 MG/ML VIAL IV ONE (17:15)
[2021-06-27] MEDS ORDERED: DOCUSATE SODIUM 100MG CAPSULE PO PRN (21:30)
[2021-06-27] MEDS ORDERED: ONDANSETRON HCL 4MG/2ML INJ IV PRN (21:30)
[2021-06-27] MEDS ORDERED: AMLODIPINE 5MG TABLET PO SCH (21:30)
[2021-06-27] MEDS ORDERED: ACETAMINOPHEN 325MG TABLET PO PRN (21:30)
[2021-06-27] MEDS ORDERED: ALBUTEROL 6.7GM HFA INHALER ORI PRN (21:30)
[2021-06-27] MEDS ORDERED: CLONIDINE 0.1MG TABLET PO PRN (21:30)
[2021-06-27] MEDS ORDERED: MAGNESIUM/ALUMINUM HYDROXIDE/SIMETHICONE 30ML UDC PO PRN (21:30)
[2021-06-27] MEDS ORDERED: AZITHROMYCIN 500MG/250ML 250 ML IV NR (21:45)
[2021-06-27] MEDS ORDERED: ENOXAPARIN 40MG/0.4ML SYR SUBCUT SCH (22:00)
[2021-06-27] MEDS ORDERED: LEVETIRACETAM 500MG TABLET PO SCH (22:00)
[2021-06-27] MEDS: HYDROCODONE/ACETAMINOPHEN 5/325MG TABLET PO PRN (22:14)
[2021-06-28] MEDS: HYDROCODONE/ACETAMINOPHEN 5/325MG TABLET PO PRN ×3 (05:16→15:03)
[2021-06-28 06:41] LABS: BASOPHILS % 0.2 % (0.0-2.0); HEMATOCRIT. 41.3 % (36.0-48.0); HEMOGLOBIN. 13.1 g/dL (12.0-16.0); LYMPHOCYTES % 43.2 % (20.0-50.0); MEAN CORPUSCULAR HEMOGLOBIN 22.8 pg (28.0-32.0); MEAN PLATELET VOLUME 8.3 fl (7.4-10.4); MONOCYTES % 13.3 % (2.0-8.0); NEUTROPHILS % 43.3 % (40.0-76.0); PLATELET 135 x1000/uL (130-400); RED BLOOD CELL COUNT 5.74 mill/uL (4.2-5.4); RED CELL DISTRIBUTION WIDTH 20.4 % (11.6-14.6)
[2021-06-28 06:50] LABS: CHLORIDE 100 mEq/L (98-107)
[2021-06-28] MEDS: LEVETIRACETAM 500MG TABLET PO SCH ×2 (10:07→22:05)
[2021-06-28] MEDS: ASPIRIN 81MG EC TABLET PO SCH (10:10)
[2021-06-28] MEDS: GABAPENTIN 300MG CAPSULE PO SCH ×2 (10:11→22:05)
[2021-06-28] MEDS: THIAMINE HCL 100MG TABLET PO SCH (10:11)
[2021-06-28] MEDS: FOLIC ACID 1MG TABLET PO SCH (11:29)
[2021-06-28] MEDS: PANTOPRAZOLE SODIUM 40 MG/VIAL IV SCH (11:29)
[2021-06-28 13:46] LABS: CREATINE KINASE MB FRACTION 3.8 ng/mL (0.5-3.6)
[2021-06-28] MEDS ORDERED: MAGNESIUM 2 G PREMIX 50 ML IV NR (14:15)
[2021-06-28 14:46] LABS: CREATINE KINASE 189 IU/L (26-192)
[2021-06-28] MEDS: POTASSIUM CHLORIDE 20MEQ TABLET SR PO SCH (15:04)
[2021-06-28] MEDS: RIVAROXABAN 15 MG TABLET PO SCH (18:48)
[2021-06-28] MEDS ORDERED: SODIUM CHLORIDE 0.9% 250 ML IV NR (19:00)
[2021-06-28] MEDS: AZITHROMYCIN 500 MG in DEXT 5% WATER 250 ML IV SCH (23:56)
[2021-06-28] MEDS: ATORVASTATIN CALCIUM 40MG TABLET PO SCH (23:56)
[2021-06-28] MEDS: SODIUM CHLORIDE 0.9% 1,000 ML IV SCH (23:57)
[2021-06-29] VITALS (7 sets, daily range): BP systolic 95–153; BP diastolic 61–86
[2021-06-29 08:21] LABS: CHLORIDE 102 mEq/L (98-107)
[2021-06-29 08:28] LABS: HEMATOCRIT. 33.8 % (36.0-48.0); HEMOGLOBIN. 10.7 g/dL (12.0-16.0); MEAN CORPUSCULAR HEMOGLOBIN 22.7 pg (28.0-32.0); MEAN CORPUSCULAR VOLUME 71.5 fL (81.0-99.0); MEAN PLATELET VOLUME 8.8 fl (7.4-10.4); PLATELET 142 x1000/uL (130-400); RED BLOOD CELL COUNT 4.72 mill/uL (4.2-5.4); RED CELL DISTRIBUTION WIDTH 19.8 % (11.6-14.6)
[2021-06-29] MEDS ORDERED: AMLODIPINE 10MG TABLET PO SCH (09:00)
[2021-06-29] MEDS: THIAMINE HCL 100MG TABLET PO SCH (09:09)
[2021-06-29] MEDS: GABAPENTIN 300MG CAPSULE PO SCH ×2 (09:09→21:49)
[2021-06-29] MEDS: FOLIC ACID 1MG TABLET PO SCH (09:09)
[2021-06-29] MEDS: POTASSIUM CHLORIDE 20MEQ TABLET SR PO SCH (09:09)
[2021-06-29] MEDS: LEVETIRACETAM 500MG TABLET PO SCH ×2 (09:10→21:49)
[2021-06-29] MEDS: ASPIRIN 81MG EC TABLET PO SCH (09:10)
[2021-06-29] MEDS: PANTOPRAZOLE SODIUM 40 MG/VIAL IV SCH (09:10)
[2021-06-29] MEDS: HYDROCODONE/ACETAMINOPHEN 5/325MG TABLET PO PRN ×4 (09:13→23:30)
[2021-06-29 10:43] LABS: PLATELET ESTIMATE NORMAL
[2021-06-29] MEDS ORDERED: POTASSIUM CHLORIDE 20MEQ TABLET SR PO NR (11:45)
[2021-06-29] MEDS: RIVAROXABAN 15 MG TABLET PO SCH (18:10)
[2021-06-29] MEDS: SODIUM CHLORIDE 0.9% 1,000 ML IV SCH (18:12)
[2021-06-29 20:35] LABS: CREATINE KINASE MB FRACTION 28.5 ng/mL (0.5-3.6)
[2021-06-29] MEDS: AZITHROMYCIN 500 MG in DEXT 5% WATER 250 ML IV SCH (21:49)
[2021-06-29] MEDS: ATORVASTATIN CALCIUM 40MG TABLET PO SCH (21:50)
[2021-06-30] VITALS: BP 109/65
[2021-06-30 04:00] VITALS: BP 105/71
[2021-06-30] MEDS: HYDROCODONE/ACETAMINOPHEN 5/325MG TABLET PO PRN ×4 (05:27→20:32)
[2021-06-30 07:57] LABS: CHLORIDE 110 mEq/L (98-107)
[2021-06-30 08:00] VITALS: BP 103/63
[2021-06-30] MEDS: AMLODIPINE 2.5MG TABLET PO SCH (09:00)
[2021-06-30] MEDS: THIAMINE HCL 100MG TABLET PO SCH (09:10)
[2021-06-30] MEDS: GABAPENTIN 300MG CAPSULE PO SCH ×2 (09:10→20:44)
[2021-06-30] MEDS: FOLIC ACID 1MG TABLET PO SCH (09:10)
[2021-06-30] MEDS: PANTOPRAZOLE SODIUM 40 MG/VIAL IV SCH (09:11)
[2021-06-30] MEDS: ASPIRIN 81MG EC TABLET PO SCH (09:11)
[2021-06-30] MEDS: LEVETIRACETAM 500MG TABLET PO SCH ×2 (09:11→20:31)
[2021-06-30] MEDS: POTASSIUM CHLORIDE 20MEQ TABLET SR PO SCH (09:11)
[2021-06-30 12:00] VITALS: BP 105/71
[2021-06-30 16:00] VITALS: BP 128/56
[2021-06-30] MEDS: RIVAROXABAN 15 MG TABLET PO SCH (16:02)
[2021-06-30] MEDS: SODIUM CHLORIDE 0.9% 1,000 ML IV SCH (16:03)
[2021-06-30] MEDS ORDERED: NALOXONE HCL 0.4MG/ML VIAL IV PRN (19:15)
[2021-06-30 20:00] VITALS: BP 110/70
[2021-06-30] MEDS: ATORVASTATIN CALCIUM 40MG TABLET PO SCH (20:31)
[2021-06-30] MEDS: AZITHROMYCIN 500 MG in DEXT 5% WATER 250 ML IV SCH (20:32)
[2021-06-30 20:55] LABS: CREATINE KINASE MB FRACTION 21.9 ng/mL (0.5-3.6)
[2021-07-01] VITALS: BP 116/79
[2021-07-01] MEDS: HYDROCODONE/ACETAMINOPHEN 5/325MG TABLET PO PRN ×5 (01:57→21:37)
[2021-07-01 04:00] VITALS: BP 109/67
[2021-07-01] MEDS: SODIUM CHLORIDE 0.9% 1,000 ML IV SCH (04:48)
[2021-07-01 06:13] LABS: CHLORIDE 110 mEq/L (98-107)
[2021-07-01 06:15] LABS: BASOPHILS % 0.5 % (0.0-2.0); EOSINOPHILS % 1.6 % (0.0-5.0); HEMATOCRIT. 30.8 % (36.0-48.0); HEMOGLOBIN. 9.9 g/dL (12.0-16.0); LYMPHOCYTES % 38.7 % (20.0-50.0); MEAN CORPUSCULAR HEMOGLOBIN 23.6 pg (28.0-32.0); MEAN CORPUSCULAR VOLUME 73.3 fL (81.0-99.0); MEAN PLATELET VOLUME 8.9 fl (7.4-10.4); MONOCYTES % 13.3 % (2.0-8.0); NEUTROPHILS % 45.9 % (40.0-76.0); PLATELET 117 x1000/uL (130-400); RED BLOOD CELL COUNT 4.19 mill/uL (4.2-5.4); RED CELL DISTRIBUTION WIDTH 20.5 % (11.6-14.6)
[2021-07-01 06:23] LABS: CREATINE KINASE MB FRACTION 13.8 ng/mL (0.5-3.6)
[2021-07-01 08:00] VITALS: BP 120/82
[2021-07-01] MEDS: POTASSIUM CHLORIDE 20MEQ TABLET SR PO SCH (09:21)
[2021-07-01] MEDS: LEVETIRACETAM 500MG TABLET PO SCH ×2 (09:22→21:37)
[2021-07-01] MEDS: ASPIRIN 81MG EC TABLET PO SCH (09:22)
[2021-07-01] MEDS: GABAPENTIN 300MG CAPSULE PO SCH ×2 (09:22→21:38)
[2021-07-01] MEDS: PANTOPRAZOLE SODIUM 40 MG/VIAL IV SCH (09:22)
[2021-07-01] MEDS: AMLODIPINE 2.5MG TABLET PO SCH (09:22)
[2021-07-01] MEDS: FOLIC ACID 1MG TABLET PO SCH (09:22)
[2021-07-01] MEDS: THIAMINE HCL 100MG TABLET PO SCH (09:22)
[2021-07-01 12:00] VITALS: BP 121/82
[2021-07-01] MEDS ORDERED: AMLO2.5T45 PO ×2 (12:21)
[2021-07-01 16:00] VITALS: BP 120/72
[2021-07-01] MEDS: RIVAROXABAN 15 MG TABLET PO SCH (17:16)
[2021-07-01 20:00] VITALS: BP 124/79
[2021-07-01] MEDS: ATORVASTATIN CALCIUM 40MG TABLET PO SCH (21:36)
[2021-07-01] MEDS: AZITHROMYCIN 500 MG in DEXT 5% WATER 250 ML IV SCH (21:38)
[2021-07-02] VITALS: BP 112/75
[2021-07-02 01:52] VITALS: BP 112/75
[2021-07-02] MEDS: HYDROCODONE/ACETAMINOPHEN 5/325MG TABLET PO PRN ×3 (02:09→11:21)
[2021-07-02 04:00] VITALS: BP 123/79
[2021-07-02] MEDS: SODIUM CHLORIDE 0.9% 1,000 ML IV SCH (06:30)
[2021-07-02 08:00] VITALS: BP 129/87
[2021-07-02] MEDS: ASPIRIN 81MG EC TABLET PO SCH (10:07)
[2021-07-02] MEDS: FOLIC ACID 1MG TABLET PO SCH (10:07)
[2021-07-02] MEDS: AMLODIPINE 2.5MG TABLET PO SCH (10:07)
[2021-07-02] MEDS: LEVETIRACETAM 500MG TABLET PO SCH (10:07)
[2021-07-02] MEDS: POTASSIUM CHLORIDE 20MEQ TABLET SR PO SCH (10:08)
[2021-07-02] MEDS: GABAPENTIN 300MG CAPSULE PO SCH (10:08)
[2021-07-02] MEDS: PANTOPRAZOLE SODIUM 40 MG/VIAL IV SCH (10:08)
[2021-07-02] MEDS: THIAMINE HCL 100MG TABLET PO SCH (10:08)
[2021-07-02 12:00] VITALS: BP 121/84
[2021-07-02] MEDS ORDERED: AMLO2.5T45 MT (14:35)
== END 2021-07-02 15:40 | disposition home or self-care (01) | DRG 871 ==
LOC: ER 11:23 → MICUSO 15:58 → 3WST 06-28 04:10 → MICUSO 06-28 04:12 → 7WST 06-28 22:07
PROVIDERS: ADMIT Internal Medicine; ATTEND Internal Medicine
PROC: 4A10X4Z Monitoring of Central Nervous Electrical Activity, External Approach (ICD-10-PCS; principal; 2021-06-28)
DX: A41.89 Other specified sepsis (principal); U07.1 COVID-19; J12.82 Pneumonia due to coronavirus disease 2019; E87.2 Acidosis; I25.10 Atherosclerotic heart disease of native coronary artery without angina pectoris; E78.5 Hyperlipidemia, unspecified; I10 Essential (primary) hypertension; K44.9 Diaphragmatic hernia without obstruction or gangrene; K21.9 Gastro-esophageal reflux disease without esophagitis; E78.00 Pure hypercholesterolemia, unspecified; G40.909 Epilepsy, unspecified, not intractable, without status epilepticus; I45.6 Pre-excitation syndrome; E87.6 Hypokalemia; Z86.711 Personal history of pulmonary embolism; Z79.01 Long term (current) use of anticoagulants; Z88.0 Allergy status to penicillin; Z91.041 Radiographic dye allergy status; Z79.899 Other long term (current) drug therapy; Z79.891 Long term (current) use of opiate analgesic; Z90.49 Acquired absence of other specified parts of digestive tract; Z95.0 Presence of cardiac pacemaker; R65.20 Severe sepsis without septic shock
CPT/HCPCS: 36415; 71045; 74176; 80048; 80053; 80076; 80305; 80320; 81003; 82550; 82553; 82728; 83605; 83735; 83880; 84100; 84145; 84484; 84550; 85025; 86140; 87426; 93005; 93970; 99291; C9113; J0456; J1100; J1650; J1953; J1956; J2060; J2270; J2405; J3475; J7030; J7060; G0480

== ENCOUNTER 2022-07-01 07:53 | Inpatient (IN) | payer OTHER, MEDICAID ==
[~2022-07-01] VITALS: Ht 167.6 cm; Wt 58.5 kg
[~2022-07-01 07:53] MED LIST changes: -AMLO10TA80 PO; +AMLO2.5T45 MT; -DOCU-100 PO; -METO-539 PO; -OMEP20TA2 PO; +OMEP20TA23 PO
[2022-07-01] MEDS ORDERED: LEVETIRACETAM 500MG PREMIX 100 ML IV ONE ×2 (08:30)
[2022-07-01 09:34] LABS: CLARITY URINE CLEAR (CLEAR); COLOR URINE YELLOW (YELLOW); KETONES URINE NEGATIVE (NEGATIVE); LEUKOCYTE ESTERASE URINE NEGATIVE (NEGATIVE); NITRITE URINE NEGATIVE (NEGATIVE); OCCULT BLOOD URINE NEGATIVE (NEGATIVE); PROTEIN URINE 1+ (NEGATIVE); SPECIFIC GRAVITY URINE 1.011 (1.005-1.030); UROBILINOGEN URINE 0.2 E.U./dL (0.2-1.0)
[2022-07-01 10:03] LABS: HEMATOCRIT. 28.8 % (36.0-48.0); HEMOGLOBIN. 9.1 g/dL (12.0-16.0); MEAN CORPUSCULAR HEMOGLOBIN 21.1 pg (28.0-32.0); MEAN CORPUSCULAR VOLUME 67.1 fL (81.0-99.0); MEAN PLATELET VOLUME 8.5 fl (7.4-10.4); PLATELET 242 x1000/uL (130-400); RED CELL DISTRIBUTION WIDTH 19.7 % (11.6-14.6)
[2022-07-01 10:11] LABS: CHLORIDE 102 mEq/L (98-107)
[2022-07-01 10:14] LABS: *AMPHETAMINES SCREEN URINE NEGATIVE (NEGATIVE); *BARBITURATES SCREEN URINE NEGATIVE (NEGATIVE); *BENZODIAZEPINES SCREEN URINE PRESUMTIVE POSITIVE (NEGATIVE); *COCAINE SCREEN URINE NEGATIVE (NEGATIVE); CANNABINOID URINE SCREEN NEGATIVE (NEGATIVE); METHADONE URINE SCREEN NEGATIVE (NEGATIVE); OPIATES URINE SCREEN PRESUMTIVE POSITIVE (NEGATIVE); PHENCYCLIDINE URINE SCREEN NEGATIVE (NEGATIVE)
[2022-07-01 10:25] LABS: ETHANOL BLOOD < 10 mg/dL
[2022-07-01] MEDS ORDERED: TRAMADOL 50MG TABLET PO NR (10:30)
[2022-07-01 10:45] LABS: PLATELET ESTIMATE NORMAL
[2022-07-01] MEDS ORDERED: LEVETIRACETAM 500MG PREMIX 100 ML IV NR (10:45)
[2022-07-01] MEDS ORDERED: POTASSIUM CHLORIDE 20MEQ TABLET SR PO NR (11:45)
[2022-07-01] MEDS ORDERED: MORPHINE SULFATE 4 MG/ML CPJ (NOT FOR IM USE) IV ONE (12:30)
[2022-07-01] MEDS ORDERED: HYDRALAZINE 20MG/ML VIAL IV NR (14:30)
[2022-07-01] MEDS ORDERED: ONDANSETRON HCL 4MG/2ML INJ IV PRN (14:45)
[2022-07-01] MEDS ORDERED: ACETAMINOPHEN 325MG TABLET PO PRN (14:45)
[2022-07-01] MEDS: AMLODIPINE 10MG TABLET PO SCH (15:14)
[2022-07-01] MEDS ORDERED: NALOXONE HCL 0.4MG/ML VIAL IV PRN (16:15)
[2022-07-01] MEDS: HYDROCODONE/ACETAMINOPHEN 7.5/325MG TABLET PO PRN ×2 (16:45→21:38)
[2022-07-01 20:00] VITALS: BP 156/108
[2022-07-01] MEDS: LEVETIRACETAM 500MG TABLET PO SCH (21:37)
[2022-07-01 22:28] VITALS: BP 137/86
[2022-07-02] VITALS: BP 96/66
[2022-07-02 04:00] VITALS: BP 100/72
[2022-07-02 08:00] VITALS: BP 115/81
[2022-07-02] MEDS: HYDROCODONE/ACETAMINOPHEN 7.5/325MG TABLET PO PRN ×3 (09:24→21:30)
[2022-07-02] MEDS: LEVETIRACETAM 500MG TABLET PO SCH ×2 (09:24→21:30)
[2022-07-02] MEDS: AMLODIPINE 10MG TABLET PO SCH (09:30)
[2022-07-02 12:00] VITALS: BP 112/71
[2022-07-02] MEDS ORDERED: VALPROATE SODIUM 1,000 MG in SODIUM CHLORIDE 0.9% 100 ML IV NR (14:00)
[2022-07-02 20:00] VITALS: BP 98/69
[2022-07-02] MEDS: DIVALPROEX SODIUM 500MG DR TABLET PO SCH (21:30)
[2022-07-03] VITALS: BP 101/67
[2022-07-03 04:00] VITALS: BP 104/62
[2022-07-03] MEDS: HYDROCODONE/ACETAMINOPHEN 7.5/325MG TABLET PO PRN ×2 (04:42→09:18)
[2022-07-03] MEDS: LEVETIRACETAM 500MG TABLET PO SCH (09:07)
[2022-07-03] MEDS: AMLODIPINE 10MG TABLET PO SCH (09:07)
[2022-07-03 09:18] VITALS: BP 104/62
[2022-07-03] MEDS: DIVALPROEX SODIUM 500MG DR TABLET PO SCH (09:23)
== END 2022-07-03 15:30 | disposition home or self-care (01) | DRG 101 ==
LOC: ER 07:53 → 7EST 12:22 → EDBEDREQTM 12:33 → EDBEDREQ 12:33 → ENRESERV 18:37 → 7EST 19:27
PROVIDERS: ADMIT Internal Medicine; ATTEND Internal Medicine
DX: G40.901 Epilepsy, unspecified, not intractable, with status epilepticus (principal); D64.9 Anemia, unspecified; E78.00 Pure hypercholesterolemia, unspecified; E87.6 Hypokalemia; G89.29 Other chronic pain; I11.0 Hypertensive heart disease with heart failure; I25.10 Atherosclerotic heart disease of native coronary artery without angina pectoris; I45.6 Pre-excitation syndrome; I50.9 Heart failure, unspecified; F41.9 Anxiety disorder, unspecified; R26.81 Unsteadiness on feet; K44.9 Diaphragmatic hernia without obstruction or gangrene; Z86.16 Personal history of COVID-19; Z95.810 Presence of automatic (implantable) cardiac defibrillator; Z88.0 Allergy status to penicillin; Z88.8 Allergy status to other drugs, medicaments and biological substances; Z79.899 Other long term (current) drug therapy
CPT/HCPCS: 36415; 71045; 80053; 80165; 80185; 80305; 80320; 81003; 85025; 93005; 97162; 99285; J0360; J1953; J2270; J3490; J7050; G0480

== ENCOUNTER 2022-08-31 11:38 | Emergency (ER) | payer OTHER, MEDICAID, MEDICARE ==
[~2022-08-31] VITALS: Ht 167.6 cm; Wt 69.0 kg
[2022-08-31 12:26] VITALS: BP 190/120
[2022-08-31] MEDS ORDERED: HYDROCODONE/ACETAMINOPHEN 5/325MG TABLET PO ONE (13:45)
[2022-08-31] MEDS ORDERED: METOPROLOL SUCCINATE 50MG ER TABLET PO NR (14:25)
== END 2022-08-31 15:21 | disposition home or self-care (01) ==
LOC: ER 11:44
DX: R56.9 Unspecified convulsions (principal); F41.9 Anxiety disorder, unspecified; I11.0 Hypertensive heart disease with heart failure; I50.9 Heart failure, unspecified; I25.10 Atherosclerotic heart disease of native coronary artery without angina pectoris; E78.00 Pure hypercholesterolemia, unspecified; Z95.0 Presence of cardiac pacemaker; Z90.49 Acquired absence of other specified parts of digestive tract; Z79.899 Other long term (current) drug therapy
CPT/HCPCS: 82962; 99283

== ENCOUNTER 2025-05-29 19:55 | Inpatient (IN) | payer MEDICARE, OTHER ==
[~2025-05-29] VITALS: Ht 152.4 cm; Wt 50.8 kg
[~2025-05-29 19:55] MED LIST changes: -DICL100G31 TP; +DICL100G58 TP; +GABA-1180 PO; -GABA-532 PO; +ONDA-239 PO; -ONDA4TAB11 PO
[2025-05-29 20:25] VITALS: O2SAT 96
[2025-05-29] MEDS: LORAZEPAM 2MG/ML UD SYRINGE IV NR ×2 (20:30→23:04)
[2025-05-29] MEDS: LEVETIRACETAM 1000MG PREMIX 100 ML IV ONE (20:32)
[2025-05-29] MEDS: ONDANSETRON HCL 4MG/2ML INJ IV ONE (20:32)
[2025-05-29] MEDS: MORPHINE SULFATE 4 MG/ML INJ (FOR IV/IM USE) IV ONE (20:33)
[2025-05-29] MEDS: SODIUM CHLORIDE 0.9% 1,000 ML IV ONE (20:33)
[2025-05-29 21:08] LABS: CLARITY URINE CLEAR (CLEAR); COLOR URINE YELLOW (YELLOW); GLUCOSE URINE NEGATIVE (NEGATIVE); KETONES URINE 1+ (NEGATIVE); LEUKOCYTE ESTERASE URINE NEGATIVE (NEGATIVE); NITRITE URINE NEGATIVE (NEGATIVE); OCCULT BLOOD URINE 2+ (NEGATIVE); PH URINE 7.5 (4.5-8.0); PROTEIN URINE 2+ (NEGATIVE); SPECIFIC GRAVITY URINE 1.015 (1.005-1.030); UROBILINOGEN URINE 1.0 E.U./dL (0.2-1.0)
[2025-05-29 21:15] LABS: *AMPHETAMINES SCREEN URINE NEGATIVE (NEGATIVE)
[2025-05-29 21:16] LABS: *BARBITURATES SCREEN URINE NEGATIVE (NEGATIVE); *BENZODIAZEPINES SCREEN URINE NEGATIVE (NEGATIVE); *COCAINE SCREEN URINE NEGATIVE (NEGATIVE); CANNABINOID URINE SCREEN NEGATIVE (NEGATIVE); ECSTASY MDMA SCREEN URINE NEGATIVE (NEGATIVE); METHADONE URINE SCREEN NEGATIVE (NEGATIVE); OPIATES URINE SCREEN PRESUMPTIVE POSITIVE (NEGATIVE); PHENCYCLIDINE URINE SCREEN NEGATIVE (NEGATIVE)
[2025-05-29 21:37] LABS: BASOPHILS % 0.8 % (0.0-2.0); EOSINOPHILS % 0.0 % (0.0-5.0); HEMATOCRIT. 33.8 % (36.0-48.0); HEMOGLOBIN. 10.9 g/dL (12.0-16.0); LYMPHOCYTES % 10.0 % (20.0-50.0); MEAN PLATELET VOLUME 7.8 fl (7.4-10.4); MONOCYTES % 11.4 % (2.0-8.0); NEUTROPHILS % 77.8 % (40.0-76.0); PLATELET 214 x1000/uL (130-400); RED BLOOD CELL COUNT 4.11 mill/uL (4.2-5.4); RED CELL DISTRIBUTION WIDTH 16.1 % (11.6-14.6)
[2025-05-29 21:51] LABS: BACTERIA URINE TRACE; SQUAMOUS EPITHELIAL CELL URINE 1+ /lpf (RARE/1+); WBC URINE 0-2 /hpf (0-2)
[2025-05-29 21:53] LABS: UREA NITROGEN BLOOD 8 mg/dL (9-23)
[2025-05-29 21:54] LABS: CREATININE 0.8 mg/dL (0.6-1.0)
[2025-05-29 21:55] LABS: PROTEIN TOTAL 7.5 g/dL (6.0-8.3)
[2025-05-29 21:56] LABS: ASPARTATE AMINOTRANSFERASE 18 IU/L (<34); BILIRUBIN DIRECT 0.3 mg/dL (<=3.0); BILIRUBIN TOTAL 0.8 mg/dL (0.1-1.0)
[2025-05-29 22:11] LABS: TROPONIN I HIGH SENSITIVITY 22 ng/L (3.0-34)
[2025-05-29] MEDS: HYDRALAZINE 20MG/ML VIAL IV ONE (23:04)
[2025-05-30] MEDS ORDERED: DIPHENHYDRAMINE 50MG/ML VIAL IV PRN (01:15)
[2025-05-30 01:38] VITALS: BP 130/86; PULSE 109; RESP 14; TEMP 37.252
[2025-05-30] MEDS ORDERED: NALOXONE HCL 0.4MG/ML VIAL IV PRN (01:45)
[2025-05-30] MEDS: HYDROCODONE/ACETAMINOPHEN 5/325MG TABLET PO PRN (07:01)
[2025-05-30 07:18] LABS: HEMATOCRIT. 35.6 % (36.0-48.0); HEMOGLOBIN. 11.5 g/dL (12.0-16.0); MEAN PLATELET VOLUME 8.2 fl (7.4-10.4); PLATELET 218 x1000/uL (130-400); RED BLOOD CELL COUNT 4.31 mill/uL (4.2-5.4); RED CELL DISTRIBUTION WIDTH 16.5 % (11.6-14.6)
[2025-05-30 07:24] LABS: CREATININE 0.7 mg/dL (0.6-1.0); UREA NITROGEN BLOOD 7 mg/dL (9-23)
[2025-05-30 08:00] VITALS: BP 169/114; PULSE 115; RESP 13; TEMP 36.7; O2SAT 100
[2025-05-30] MEDS: LEVETIRACETAM 1000MG PREMIX 100 ML IV SCH (09:59)
[2025-05-30] MEDS: GABAPENTIN 300MG CAPSULE PO SCH (10:00)
[2025-05-30] MEDS: FOLIC ACID 1MG TABLET PO SCH (10:00)
[2025-05-30] MEDS: ASPIRIN 81MG TABLET PO SCH (10:00)
[2025-05-30] MEDS: AMLODIPINE 10MG TABLET PO SCH (10:13)
[2025-05-30] MEDS: LACTULOSE 20G/30ML UDC PO NR (11:57)
[2025-05-30] MEDS: POTASSIUM CHLORIDE 20MEQ TABLET SR PO NR (11:58)
[2025-05-30 12:00] VITALS: BP 163/107; PULSE 112; RESP 12; TEMP 36.8; O2SAT 100
[2025-05-30] MEDS: MAGNESIUM 2 G PREMIX 50 ML IV NR (13:00)
[2025-05-30] MEDS: HYDRALAZINE HCL 50MG TABLET PO SCH (13:06)
[2025-05-30] MEDS: LORAZEPAM 2MG/ML UD SYRINGE IV PRN (13:26)
[2025-05-30 16:00] VITALS: BP 100/73; PULSE 120; RESP 17; TEMP 36.9; O2SAT 100
[2025-05-30] MEDS: RIVAROXABAN 15 MG TABLET PO SCH (17:20)
[2025-05-30 20:00] VITALS: BP 105/78; PULSE 116; RESP 17; TEMP 36.9; O2SAT 100
[2025-05-30 20:35] LABS: LYMPHOCYTES % MANUAL 17.0 % (20.0-60.0); MONOCYTES % MANUAL 25.0 % (2.0-8.0); NEUTROPHILS % MANUAL 58.0 % (45.0-75.0); PLATELET ESTIMATE NORMAL
[2025-05-30] MEDS: ATORVASTATIN CALCIUM 40MG TABLET PO SCH (20:55)
[2025-05-31] VITALS (8 sets, daily range): BP systolic 100–116; BP diastolic 68–81; PULSE 109–119; RESP 14–24; TEMP 36.7–37.3; O2SAT 97–100
[2025-05-31] MEDS ORDERED: LEVE1000 MT (10:52)
[2025-05-31] MEDS: POLYETHYLENE GLYCOL 3350 (17GM) 1 DOSE PACK PO SCH (11:00)
[2025-05-31] MEDS: LEVETIRACETAM 500MG TABLET PO SCH (21:24)
[2025-05-31] MEDS: HYDROCODONE/ACETAMINOPHEN 5/325MG TABLET PO SCH (21:25)
== END 2025-05-31 21:55 | disposition home or self-care (01) | DRG 101 ==
LOC: ER 19:55 → 3WST 22:49 → EDBEDREQTM 22:50 → EDBEDREQ 22:50 → ENRESERV 05-30 00:05
PROVIDERS: ADMIT Internal Medicine; ATTEND Internal Medicine
PROC: 4A10X4Z Monitoring of Central Nervous Electrical Activity, External Approach (ICD-10-PCS; principal; 2025-05-31)
DX: G40.909 Epilepsy, unspecified, not intractable, without status epilepticus (principal); G93.40 Encephalopathy, unspecified; Z79.01 Long term (current) use of anticoagulants; I11.0 Hypertensive heart disease with heart failure; K59.00 Constipation, unspecified; I50.9 Heart failure, unspecified; E78.00 Pure hypercholesterolemia, unspecified; E83.42 Hypomagnesemia; I25.10 Atherosclerotic heart disease of native coronary artery without angina pectoris; F41.9 Anxiety disorder, unspecified; E87.6 Hypokalemia; Z86.711 Personal history of pulmonary embolism; Z95.810 Presence of automatic (implantable) cardiac defibrillator; Z79.899 Other long term (current) drug therapy; Z88.0 Allergy status to penicillin; Z91.128 Patient's intentional underdosing of medication regimen for other reason
CPT/HCPCS: 36415; 74176; 80048; 80076; 80305; 80320; 81003; 82542; 83735; 83880; 84484; 85025; 95816; 96365; 99285; J0360; J1953; J2060; J2270; J2405; J3475; J7030; G0480